=== PATIENT | male | born 1945 | race Caucasian/White ===

== ENCOUNTER 2016-07-29 12:58 | Emergency (ER) | payer BC, OTHER ==
[~2016-07-29] VITALS: Ht 182.9 cm; Wt 63.7 kg
[~2016-07-29 12:58] MED LIST: NCDT21 TD; SRQ25 PO; SRQSR50 PO; TYL325X PO; VTMB12 PO
[2016-07-29 13:24] VITALS: TEMP 36.3; Ht 182.9 cm; Wt 63.7 kg
[2016-07-29] MEDS ORDERED: LISI20TA55 PO (14:54)
--- NOTE | 2016-07-29 14:57 | EMERGENCY ROOM VISIT NOTE ---
History Report prepared by Urban: Gregory Vásquez Under the Supervision of: Dr. Grover Abrams M.D. First contact with patient: 14:42 Chief Complaint: BLEEDING Stated Complaint: BLEEDING History of Present Illness The patient is a 71 year old male who presents to the Emergency Room with complaints of sudden rectal bleeding beginning several hours prior to arrival. As per sister, she has to clean the seat of the toilet and the floor after the patient uses the bathroom. She states the patient has been experiencing blood in his underwear, as well. The sister denies the patient having a history of a GI bleed or being on blood thinners, but he does has a history of a previous traumatic brain injury. The patient denies hematuria, abdominal pain, weakness, and lightheadedness. Source of History: patient, family (sister) Onset: several hours prior to arrival Position: other (rectum) Quality: other (bleeding) Timing: other (sudden) Associated Symptoms: + hematochezia, No abdominal pain, No urinary symptoms , No weakness Review of Systems All systems have been listed, reviewed, and are negative other than those previously mentioned. Please see Additional Medical History Sheet. Past Medical & Surgical Medical Problems: (1) Asthma (2) Encephalopathy acute (3) Hypertension (4) Status post fall (5) TBI (traumatic brain injury) Family History Cancer Gallbladder disease Social History Smoking Status: Former Smoker Alcohol Use: none Drug Use: none Marital Status: single Housing Status: lives with family Occupation Status: disabled Current/Historical Medications Scheduled Cyanocobalamin (Vitamin B-12), 1,000 MCG PO DAILY Lisinopril/Hctz (Prinzide 20-25MG), 1 TAB PO DAILY Quetiapine Fumarate (Seroquel Xr), 50 MG PO DAILY@1999 Scheduled PRN Acetaminophen (Tylenol), 650 MG PO Q4H PRN for Pain or Fever Quetiapine Fumarate (Quetiapine Fumarate), 25 MG PO Q4H PRN for agitation Allergies Coded Allergies: No Known Allergies (Verified , 03/27/16) Physical Exam Vital Signs Date Time Temp Pulse Resp B/P Pulse Ox O2 Delivery O2 Flow Rate FiO2 07/29/16 15:36 61 16 112/61 98 Room Air 58 126/60 59 117/65 07/29/16 13:24 36.3 86 20 110/61 98 Room Air Physical Exam GENERAL: Patient awake, alert, oriented x 3. Patient follows commands. Patient does not appear toxic. Patient is adequately hydrated and well- nourished. SKIN: No erythema, pallor, cyanosis or rash HEENT: Normal head, pupils equal, reactive to light and accommodation. LUNGS: Clear to auscultation. No wheezes, no rales, no rhonchi. HEART: No murmurs. No gallops. No rubs ABDOMEN: No masses, no rebound, no hepatomegaly or splenomegaly. GENITALIA: Normal external genitalia. No signs of bleeding. RECTAL: No external hemorrhoids. Prostate enlarged and firm. Minimal stool which is guaiac positive. EXTREMITIES: No signs of trauma. No pedal or pretibial edema. No calf or thigh tenderness. NEUROLOGIC: Cranial nerves II-XII within normal limits. No gross motor sensory function deficits. Medical Decision & Procedures Laboratory Results 07/29/16 15:00 Red Blood Count 4.19, Mean Corpuscular Volume 94.5, Mean Corpuscular Hemoglobin 31.0, Mean Corpuscular Hemoglobin Concent 32.8, Mean Platelet Volume 10.5, Neutrophils (%) (Auto) 57.3, Lymphocytes (%) (Auto) 19.8, Monocytes (%) (Auto) 15.0, Eosinophils (%) (Auto) 6.4, Basophils (%) (Auto) 1.3, Neutrophils # (Auto ) 3.60, Lymphocytes # (Auto) 1.24, Monocytes # (Auto) 0.94, Eosinophils # (Auto ) 0.40, Basophils # (Auto) 0.08 07/29/16 15:00 Test 07/29/16 15:00 White Blood Count 6.27 K/uL (4.8-10.8) Red Blood Count 4.19 M/uL (4.7-6.1) Hemoglobin 13.0 g/dL (14.0-18.0) Hematocrit 39.6 % (42-52) Mean Corpuscular Volume 94.5 fL (80-100) Mean Corpuscular Hemoglobin 31.0 pg (25-34) Mean Corpuscular Hemoglobin Concent 32.8 g/dl (32-36) Platelet Count 217 K/uL (130-400) Mean Platelet Volume 10.5 fL (7.4-10.4) Neutrophils (%) (Auto) 57.3 % Lymphocytes (%) (Auto) 19.8 % Monocytes (%) (Auto) 15.0 % Eosinophils (%) (Auto) 6.4 % Basophils (%) (Auto) 1.3 % Neutrophils # (Auto) 3.60 K/uL (1.4-6.5) Lymphocytes # (Auto) 1.24 K/uL (1.2-3.4) Monocytes # (Auto) 0.94 K/uL (0.11-0.59) Eosinophils # (Auto) 0.40 K/uL (0-0.5) Basophils # (Auto) 0.08 K/uL (0-0.2) RDW Standard Deviation 51.3 fL (36.4-46.3) RDW Coefficient of Variation 15.0 % (11.5-14.5) Immature Granulocyte % (Auto) 0.2 % Immature Granulocyte # (Auto) 0.01 K/uL (0.00-0.02) Prothrombin Time 10.5 SECONDS (9.0-12.0) Prothromb Time International Ratio 1.0 (0.9-1.1) Activated Partial Thromboplast Time 25.9 SECONDS (21.0-31.0) Partial Thromboplastin Ratio 1.0 Anion Gap 10.0 mmol/L (3-11) Est Creatinine Clear Calc Drug Dose 38.7 ml/min Estimated GFR () 49.9 Estimated GFR (Non- 43.0 BUN/Creatinine Ratio 14.6 (10-20) Calcium Level 8.7 mg/dl (8.5-10.1) Total Bilirubin 0.2 mg/dl (0.2-1) Aspartate Amino Transf (AST/SGOT) 11 U/L (15-37) Alanine Aminotransferase (ALT/SGPT) 19 U/L (12-78) Alkaline Phosphatase 73 U/L (45-117) Total Protein 6.3 gm/dl (6.4-8.2) Albumin 3.2 gm/dl (3.4-5.0) Globulin 3.1 gm/dl (2.5-4.0) Albumin/Globulin Ratio 1.0 (0.9-2) Laboratory results as stated above per my review. ED Course 1441: Past medical records reviewed. The patient was evaluated in room A10. A complete history and physical examination was performed. 1540: Upon reevaluation, the patient's results were discussed. I discussed today 's findings with the patient and his sister. The patient and his sister verbalized agreement of the treatment plan. The patient was discharged home. Medical Decision Nurses notes reviewed. Medical history sheet reviewed. Differential diagnosis includes but is not limited to: hemorrhoids, fissure, GI bleed, anemia. The patient has no hemorrhoids or visible fissures but does have guaiac positive stools. Hemoglobin hematocrit are not low. The patient will require sigmoidoscopy or colonoscopy. He is currently safe to return home. He is to call his family physician tomorrow to set up further GI workup. Impression Primary Impression: GI bleed Scribe Attestation The scribe's documentation has been prepared under my direction and personally reviewed by me in its entirety. I confirm that the note above accurately reflects all work, treatment, procedures, and medical decision making performed by me. Departure Information Dispostion Home / Self-Care Referrals No Doctor, Assigned (PCP) Forms HOME CARE DOCUMENTATION FORM, IMPORTANT VISIT INFORMATION Patient Instructions GI Bleeding - [facility], My [facility] Additional Instructions Continue all of your current medications as prescribed. Call Dr. Braswell's office tomorrow for a follow-up appointment.
[2016-07-29 15:11] LABS: BASO % 1.3 %; BASO ABS # 0.08 K/uL (0-0.2); COMPLETE YES; EOS % 6.4 %; HEMATOCRIT 39.6 % (42-52); IG% 0.2 %; LYMPH % 19.8 %; LYMPH ABS # 1.24 K/uL (1.2-3.4); MEAN CELL VOLUME 94.5 fL (80-100); MEAN CORPUSCULAR HGB CONC 32.8 g/dl (32-36); MEAN PLATELET VOLUME 10.5 fL (7.4-10.4); NEUT % 57.3 %; PLATELET COUNT 217 K/uL (130-400); RED BLOOD COUNT 4.19 M/uL (4.7-6.1); WHITE BLOOD COUNT 6.27 K/uL (4.8-10.8)
[2016-07-29 15:26] LABS: PROTHROMBIN TIME (PATIENT) 10.5 SECONDS (9.0-12.0)
[2016-07-29 15:29] LABS: BUN/CREATININE RATIO 14.6 (10-20); CALCIUM 8.7 mg/dl (8.5-10.1); CREATININE 1.6 mg/dl (0.60-1.40); POTASSIUM 3.7 mmol/L (3.5-5.1)
[2016-07-29 16:14] VITALS: BP 112/53; PULSE 59; O2SAT 100
[2016-08-10] MEDS ORDERED: QUET1TAB32 PO (13:56)
[2016-08-10] MEDS ORDERED: CYAN50TA2 PO (13:56)
== END 2016-07-29 16:15 | disposition home or self-care (01) ==
LOC: C.EDB 13:00 → C.EDA 16:15
DX: K92.2 Gastrointestinal hemorrhage, unspecified (principal); I10 Essential (primary) hypertension; Z87.820 Personal history of traumatic brain injury

== ENCOUNTER → 2016-08-09 | Outpatient (CLI) | payer BC ==
[~2016-08-09] MED LIST changes: +CYAN500T PO; +CYAN50TA2 PO; +LISI20TA55 PO; +MESA1.2T PO; -NCDT21 TD; +QUET1TAB30 PO; +QUET1TAB32 PO
[2016-08-09 17:33] LABS: HEMATOCRIT 41.2 % (42-52); MEAN CELL VOLUME 94.5 fL (80-100); MEAN CORPUSCULAR HGB CONC 32.8 g/dl (32-36); MEAN PLATELET VOLUME 11.1 fL (7.4-10.4); PLATELET COUNT 260 K/uL (130-400); RED BLOOD COUNT 4.36 M/uL (4.7-6.1); WHITE BLOOD COUNT 10.15 K/uL (4.8-10.8)
== END | disposition home or self-care (01) ==
LOC: C.LABBFT 10:39
PROVIDERS: ATTEND Internal Medicine
DX: F50.89 Other specified eating disorder (principal); K92.2 Gastrointestinal hemorrhage, unspecified

== ENCOUNTER → 2016-08-14 | Day surgery (SDC) | payer BC ==
[2016-08-10 13:56] VITALS: Ht 180.3 cm; Wt 63.6 kg
[~2016-08-14] VITALS: Ht 180.3 cm; Wt 63.6 kg
[~2016-08-14] MED LIST changes: +LIDOCAINE HCL 2% 2 ML VIAL (20MG/ML) ONE; +PROPOFOL IV EMULSION 10 MG/ML 20 ML VIAL IV ONE; +SODIUM CHLORIDE 0.9% 500ML 500 ML IV ONE; -SRQ25 PO; -SRQSR50 PO; -TYL325X PO; -VTMB12 PO
--- NOTE | 2016-08-14 12:55 | Endo History and Physical ---
History & Physical Date of Service: Aug 14, 2016. Chief Complaint: RECTAL BLEEDING Referring Physician: DR JONES History of Present Illness Weight loss, rectal bleeding Past Surgical History Hx Cardiac Surgery: No Hx Internal Defibrillator: No Hx Pacemaker: No Hx Abdominal Surgery: No Hx of Implantable Prosthesis: No Hx Post-Op Nausea and Vomiting: No Hx Cancer Surgery: No Hx Thoracic Surgery: No Hx Orthopedic: No Hx Urinary Tract Surgery: No Family History IBD Social History Smoking Status: Former Smoker Hx Substance Use: No Hx Alcohol Use: Yes (QUIT 7-8 YEARS AGO) Allergies Coded Allergies: No Known Allergies (Verified , 08/14/16) Current Medications Reported Home Medications Medications Dose Route/Sig Max Daily Dose Days Date Category Seroquel (Quetiapine Fumarate) 50 Mg Tab 50 Mg PO HS PRN 08/10/16 Reported Vitamin B-12 (Cyanocobalamin) 50 Mcg Tab 1 Tab PO BID 08/10/16 Reported Prinzide 20-25MG (HCTZ/Lisinopril) Tab 1 Tab PO QAM 07/29/16 Reported Vital Signs Weight (Kilograms): 63.64 Height (Feet): 5 Height (Inches): 11 Date Time Temp Pulse Resp B/P Pulse Ox O2 Delivery O2 Flow Rate FiO2 08/14/16 12:28 36.7 70 16 120/59 99 Room Air Physical Exam General Appearance: WD/WN, no apparent distress, + thin Respiratory/Chest: Auscultation: breath sounds normal, no wheezing, no rales/crackles Cardiovascular: Heart Auscultation: RRR, no murmurs Abdomen: Inspection & Palpation: soft, no tenderness, guarding & rebound Assessment and Plan Cleared for EGD and colonoscopy.
--- NOTE | 2016-08-14 13:31 | Discharge Instructions ---
Endoscopy Patient Instructions Date / Procedure(s) Performed Aug 14, 2016. Colonoscopy, EGD Allergy Information Coded Allergies: No Known Allergies (Verified , 08/14/16) Discharge Date / Findings Aug 14, 2016. Colitis, incomplete colonoscopy. Hiatal hernia/\. Medication Instructions Restart Stopped Medication(s): Restart all medications today. Start Lialda one tablet twice daily. Provider Instructions Activity Restrictions - No exercising or heavy lifting for 24 hours. - Do not drink alcohol the day of the procedure. - Do not drive a car or operate machinery until the day after the procedure. - Do not make any important decisions or sign important papers in 24 hours after the procedure. Following Day: - Return to full activity which may include returning to work/school. Diet Start your diet with liquids and light foods (jello, soup, juice, toast). Then eat your usual diet if not nauseated. Treatment For Common After Affects For mild abdominal pain, bloating, or excessive gas: - Rest - Eat lightly - Lie on right side Follow-Up Information Follow-up with DR JONES as scheduled Anesthesia Information What You Should Know You have had a procedure that required some medicine to reduce anxiety and discomfort. This treatment is called moderate sedation. After receiving the treatment, you may be sleepy, but you will be able to breathe on your own. The effects of the treatment may last for several hours. Follow these instructions along with Activity/Diet recommendations noted above: * Do NOT do anything where dizziness or clumsiness would be dangerous. * Rest quietly at home today, then you can be up and about tomorrow. * Have a responsible person stay with you the rest of today. * You may have had an I.V. today. If so, you may take the dressing off later today. Recommendations Call your doctor if: * Trouble breathing * Continuous vomiting for more than 24 hours * Temperature above 101 degrees * Severe abdominal pain or bloating * Pain not relieved by pain medicine ordered * There is increased drainage or redness from any incision * A large amount of rectal bleeding greater than 2-3 tablespoons. (If you had a polyp/s removed or have hemorrhoids, a small amount of blood - from the rectum is to be expected.) * You have any unanswered questions or concerns. IN THE EVENT OF A SERIOUS EMERGENCY, GO TO THE NEAREST EMERGENCY ROOM Your discharge instructions were prepared by provider Zackary Chun. Patient Instructions Signature Page Yakov Howard Patient (or Guardian) Signature/Date: I have read and understand the instructions given to me by my caregivers. Caregiver/RN/Doctor Signature/Date: The above-named patient and/or guardian has received patient instructions on this date. + Original Patient Signature Page (only) stays with chart. Please make copy for patient.
--- NOTE | 2016-08-14 13:43 | Anesthesiology Progress Note ---
Anesthesia Post Op Note Date & Time Aug 14, 2016 at 13:43 Vital Signs Pain Intensity: 0 Vital Signs Past 12 Hours Date Time Temp Pulse Resp B/P Pulse Ox O2 Delivery O2 Flow Rate FiO2 08/14/16 12:28 36.7 70 16 120/59 99 Room Air Notes Mental Status: alert / awake / arousable, participated in evaluation Pt Amnestic to Procedure: Yes Nausea / Vomiting: adequately controlled Pain: adequately controlled Airway Patency, RR, SpO2: stable & adequate BP & HR: stable & adequate Hydration State: stable & adequate Anesthetic Complications: no major complications apparent
[2016-08-14 14:07] VITALS: BP 112/57; PULSE 53; O2SAT 98
--- NOTE | 2016-08-15 00:45 | GI REPORT ---
Procedure Date: 08/14/2016 12:50 PM Procedure: Colonoscopy Indications: Rectal bleeding Medicines: Monitored Anesthesia Care Complications: No immediate complications. Estimated blood loss: None. Estimated Blood Loss: Estimated blood loss: none. Procedure: Pre-Anesthesia Assessment: - Prior to the procedure, a History and Physical was performed, and patient medications, allergies and sensitivities were reviewed. The patient's tolerance of previous anesthesia was reviewed. - ASA Grade Assessment: III - A patient with severe systemic disease. After I obtained informed consent, the scope was passed under direct vision. Throughout the procedure, the patient's blood pressure, pulse, and oxygen saturations were monitored continuously. The Scope was introduced through the anus with the intention of advancing to the cecum. The scope was advanced to the sigmoid colon before the procedure was aborted. Medications were given. The colonoscopy was performed with difficulty due to inadequate bowel prep. The patient tolerated the procedure well. The quality of the bowel preparation was inadequate. The bowel preparation used was split dose MIralax. Findings: Diffuse moderate inflammation characterized by congestion (edema) and granularity was found from rectum to sigmoid colon. Biopsies were taken with a cold forceps for histology. Fluid aspiration was performed through the scope suction channel. The amount of fluid collected was 10 mL. Sample(s) were sent for bacterial cultures, Clostridium difficile and ova and parasites. Impression: - Preparation of the colon was inadequate. - Diffuse moderate inflammation was found from rectum to sigmoid colon secondary to colitis. Biopsied. Fluid aspiration performed. - The procedure was aborted due to inadequate bowel prep. Recommendation: - Await pathology results. - Use Lialda 1.2 gm at 1 tabs PO twice daily. - Discharge patient to home (with escort). Zackary Chun M.D. Zackary Chun MD 08/14/2016 1:29:48 PM This report has been signed electronically. Note Initiated On: 08/14/2016 12:50 PM I attest to the content of the Intraoperative Record and orders documented therein, exceptions below
--- NOTE | 2016-08-15 00:45 | GI REPORT ---
Procedure Date: 08/14/2016 12:50 PM Procedure: Upper GI endoscopy Indications: Weight loss Medicines: Monitored Anesthesia Care Complications: No immediate complications. Estimated blood loss: None. Estimated Blood Loss: Estimated blood loss: none. Procedure: Pre-Anesthesia Assessment: - Prior to the procedure, a History and Physical was performed, and patient medications, allergies and sensitivities were reviewed. The patient's tolerance of previous anesthesia was reviewed. - ASA Grade Assessment: III - A patient with severe systemic disease. After obtaining informed consent, the endoscope was passed under direct vision. Throughout the procedure, the patient's blood pressure, pulse, and oxygen saturations were monitored continuously. The scope was introduced through the mouth, and advanced to the third part of the duodenum. Small bowel enteroscopy was deemed necessary. The upper GI endoscopy was accomplished with ease. The patient tolerated the procedure well. Findings: The upper third of the esophagus, middle third of the esophagus and lower third of the esophagus were normal. The Z-line was regular and was found 40 cm from the incisors. A small hiatus hernia was present. The entire examined stomach was normal. Biopsies were taken with a cold forceps for Helicobacter pylori testing. The examined duodenum was normal. Biopsies for histology were taken with a cold forceps for evaluation of celiac disease. Verification of patient identification for the specimens was done by the physician and nurse using the patient's name, date and medical record number. Impression: - Normal upper third of esophagus, middle third of esophagus and lower third of esophagus. - Z-line regular, 40 cm from the incisors. - Small hiatus hernia. - Normal stomach. Biopsied. - Normal examined duodenum. Biopsied. Recommendation: - Perform a colonoscopy today. Zackary Chun M.D. Zackary Chun MD 08/14/2016 1:07:49 PM This report has been signed electronically. Note Initiated On: 08/14/2016 12:50 PM I attest to the content of the Intraoperative Record and orders documented therein, exceptions below
[2016-08-17 15:21] LABS: CRYPTOSPORIDIUM AG TC 37213 NOT DETECTED (NOT DETECTED); O&P GIARDIA AG NOT DETECTED (NOT DETECTED)
== END | disposition home or self-care (01) ==
LOC: C.GI 11:51
PROVIDERS: ATTEND Internal Medicine Gastroenterology
DX: K52.9 Noninfective gastroenteritis and colitis, unspecified (principal); R63.4 Abnormal weight loss; K44.9 Diaphragmatic hernia without obstruction or gangrene; K62.5 Hemorrhage of anus and rectum

== ENCOUNTER 2016-12-07 21:37 | Inpatient (IN) | payer BC, OTHER ==
[~2016-12-07] VITALS: Ht 182.9 cm; Wt 66.6 kg
[~2016-12-07 21:37] MED LIST changes: -CYAN500T PO; -LIDOCAINE HCL 2% 2 ML VIAL (20MG/ML) ONE; -MESA1.2T PO; -PROPOFOL IV EMULSION 10 MG/ML 20 ML VIAL IV ONE; -QUET1TAB30 PO; -SODIUM CHLORIDE 0.9% 500ML 500 ML IV ONE
[2016-12-07] MEDS ORDERED: SODIUM CHLORIDE 0.9% 500ML 500 ML IV STA (22:18)
--- NOTE | 2016-12-07 22:22 | EMERGENCY ROOM VISIT NOTE ---
History Report prepared by Urban: Winsome Vital Under the Supervision of: Dr. Maxim Hall M.D. First contact with patient: 22:13 Chief Complaint: FALL Stated Complaint: FALL/ EVAL History of Present Illness The patient is a 71 year old male who presents to the Emergency Room with complaints of an episode of a fall beginning just [employer]. The patient's family reports that the patient fell at home today while they were not in the same room with him. They state that they found him on the floor and his glasses were not on his face. The patient does not remember if he hit his head during the fall and he states that he did need help to get up afterwards. The family notes that he has been more tired lately. He denies any head pain and abdominal pain. Source of History: patient, family Onset: just [employer] Position: other (global) Quality: other (fall) Timing: other (episode) Associated Symptoms: No headache, No abdominal pain Note: Complains of tiredness. Review of Systems See HPI for pertinent positives & negatives. A total of 10 systems reviewed and were otherwise negative. Past Medical & Surgical Medical Problems: (1) Asthma (2) Encephalopathy acute (3) Hypertension (4) Lower extremity weakness (5) Status post fall (6) TBI (traumatic brain injury) Family History Cancer Gallbladder disease Social History Smoking Status: Current Some Day Smoker Alcohol Use: none Drug Use: none Marital Status: single Housing Status: lives with family Occupation Status: disabled Current/Historical Medications Scheduled Cyanocobalamin (Vitamin B-12), 1,000 MCG PO DAILY Lisinopril/Hctz (Prinzide 20-25MG), 1 TAB PO QAM Mesalamine (Lialda), 1.2 GM PO BID Quetiapine Fumarate (Seroquel), 50 MG PO HS Scheduled PRN Quetiapine Fumarate (Seroquel), 25 MG PO Q4 PRN for Agitation Allergies Coded Allergies: No Known Allergies (Verified , 12/07/16) Physical Exam Vital Signs Date Time Temp Pulse Resp B/P (MAP) Pulse Ox O2 Delivery O2 Flow Rate FiO2 12/08/16 01:07 77 12/08/16 00:47 76 18 131/72 96 Room Air 12/07/16 22:41 73 134/66 72 138/69 83 146/76 6/30/17 22:36 98 Room Air 12/07/16 22:36 98 Room Air 12/07/16 22:12 70 12/07/16 21:45 36.7 72 18 160/66 98 Room Air Physical Exam GENERAL: Patient is a healthy-appearing well-nourished male HEAD: Normocephalic atraumatic EYES: Ocular movements intact pupils equal and react to light OROPHARYNX mucous membranes are moist no exudates present no erythema or edema present NECK: Supple no nuchal rigidity CHEST: Good equal expansion LUNGS: Clear and equal to auscultation CARDIAC: Normal S1 and S2 ABDOMEN: Soft nontender no guarding BACK: No CVA tenderness EXTREMITIES: No pain upon palpation normal muscle strength in all groups no clubbing cyanosis or edema NEURO: Patient is following commands and answering questions appropriately. Alert and oriented x3 Cranial Nerves 2-12 grossly intact Medical Decision & Procedures ER Provider Diagnostic Interpretation: Radiology results as stated below per my review and radiologist interpretation: CT SCAN OF THE BRAIN WITHOUT IV CONTRAST FINDINGS: Brain parenchyma: There are age-related involutional changes noting moderate subcortical and periventricular microangiopathic change. Bifrontal and right temporal encephalomalacia are similar to previous and consistent with remote infarcts. There is no hemorrhage, mass effect, or evidence of acute territorial ischemia by CT criteria. Stanford-white matter is preserved. No extra-axial fluid collection is seen. Ventricles, sulci, cisterns: Prominent secondary to involutional change. Intracranial vasculature: There is atherosclerotic calcification of the cavernous carotid arteries. Prominence of the left MCA bifurcation is similar to previous. See report of CT angiogram of the brain dated 03/27/2016. Calvarium: Unremarkable. Sinuses and mastoids: The visualized paranasal sinuses are clear. The mastoid air cells are well pneumatized. Orbits: The bony orbits are grossly intact. IMPRESSION: Senescent changes and remote infarcts as above. There is no hemorrhage, mass effect, or evidence of acute territorial ischemia by CT criteria. Electronically signed by: Jordy Hernandez M.D. 12/07/2016 11:13 PM Dictated Date/Time: 12/07/2016 11:10 PM SINGLE VIEW CHEST FINDINGS: An AP, portable, upright chest radiograph is compared to study dated 03/27/2016. The examination is degraded by portable technique and patient rotation. The heart is top normal for projection. There is atherosclerotic calcification of the thoracic aorta. Chronic interstitial thickening is unchanged. No airspace consolidation, large pleural effusion, or pneumothorax is seen. There is minimal left basilar atelectasis. The skeletal structures are osteopenic. There are healed right-sided rib fractures. Chronic posttraumatic deformity is seen in the right clavicle. Degenerative change is noted in the thoracic spine. IMPRESSION: No acute cardiopulmonary abnormality. Electronically signed by: Jordy Hernandez M.D. 12/07/2016 10:42 PM Dictated Date/Time: 12/07/2016 10:41 PM Laboratory Results 12/07/16 22:40 Red Blood Count 4.12, Mean Corpuscular Volume 91.3, Mean Corpuscular Hemoglobin 29.9, Mean Corpuscular Hemoglobin Concent 32.7, Mean Platelet Volume 9.4, Neutrophils (%) (Auto) 70.3, Lymphocytes (%) (Auto) 9.8, Monocytes (%) (Auto) 10.7, Eosinophils (%) (Auto) 8.5, Basophils (%) (Auto) 0.5, Neutrophils # (Auto ) 9.03, Lymphocytes # (Auto) 1.26, Monocytes # (Auto) 1.37, Eosinophils # (Auto ) 1.09, Basophils # (Auto) 0.07 12/07/16 22:40 Test 12/07/16 22:38 12/07/16 22:40 12/07/16 23:52 Bedside Glucose 100 mg/dl (70-99) White Blood Count 12.85 K/uL (4.8-10.8) Red Blood Count 4.12 M/uL (4.7-6.1) Hemoglobin 12.3 g/dL (14.0-18.0) Hematocrit 37.6 % (42-52) Mean Corpuscular Volume 91.3 fL (80-100) Mean Corpuscular Hemoglobin 29.9 pg (25-34) Mean Corpuscular Hemoglobin Concent 32.7 g/dl (32-36) Platelet Count 350 K/uL (130-400) Mean Platelet Volume 9.4 fL (7.4-10.4) Neutrophils (%) (Auto) 70.3 % Lymphocytes (%) (Auto) 9.8 % Monocytes (%) (Auto) 10.7 % Eosinophils (%) (Auto) 8.5 % Basophils (%) (Auto) 0.5 % Neutrophils # (Auto) 9.03 K/uL (1.4-6.5) Lymphocytes # (Auto) 1.26 K/uL (1.2-3.4) Monocytes # (Auto) 1.37 K/uL (0.11-0.59) Eosinophils # (Auto) 1.09 K/uL (0-0.5) Basophils # (Auto) 0.07 K/uL (0-0.2) RDW Standard Deviation 46.6 fL (36.4-46.3) RDW Coefficient of Variation 14.0 % (11.5-14.5) Immature Granulocyte % (Auto) 0.2 % Immature Granulocyte # (Auto) 0.03 K/uL (0.00-0.02) Anion Gap 5.0 mmol/L (3-11) Est Creatinine Clear Calc Drug Dose 31.6 ml/min Estimated GFR () 53.9 Estimated GFR (Non- 46.5 BUN/Creatinine Ratio 21.2 (10-20) Calcium Level 9.6 mg/dl (8.5-10.1) Total Bilirubin 0.1 mg/dl (0.2-1) Direct Bilirubin < 0.1 mg/dl (0-0.2) Aspartate Amino Transf (AST/SGOT) 13 U/L (15-37) Alanine Aminotransferase (ALT/SGPT) 19 U/L (12-78) Alkaline Phosphatase 96 U/L (45-117) Total Creatine Kinase 152 U/L (39-308) Creatine Kinase MB 1.2 ng/ml (0.5-3.6) Creatine Kinase MB Ratio 0.8 (0-3.0) Troponin I < 0.015 ng/ml (0-0.045) Total Protein 6.9 gm/dl (6.4-8.2) Albumin 2.9 gm/dl (3.4-5.0) Thyroid Stimulating Hormone (TSH) 1.860 uIu/ml (0.300-4.500) Urine Color YELLOW Urine Appearance CLEAR (CLEAR) Urine pH 5.0 (4.5-7.5) Urine Specific [place] 1.022 (1.000-1.030) Urine Protein NEG (NEG) Urine Glucose (UA) NEG (NEG) Urine Ketones NEG (NEG) Urine Occult Blood NEG (NEG) Urine Nitrite NEG (NEG) Urine Bilirubin NEG (NEG) Urine Urobilinogen NEG (NEG) Urine Leukocyte Esterase NEG (NEG) Labs reviewed by ED physician. Medications Administered Medications (Trade) Dose Ordered Sig/Jose Miguel Route Start Time Stop Time Status Last Admin Dose Admin Sodium Chloride 500 ml @ 999 mls/hr Q31M STAT IV 12/07/16 22:18 12/07/16 22:48 DC 12/07/16 22:39 999 MLS/HR ECG Indication: other (fall) Rate (beats per minute): 71 Rhythm: normal sinus Findings: no acute ischemic change, no ectopy, other (old septal infarct) ED Course 2213: Past medical records reviewed. The patient was evaluated in room B10. A complete history and physical examination was performed. 2218: Sodium Chloride 500 ml @ 999 mls/hr IV. 0002: The patient was ambulated by the nursing staff and is concerning for fall risk. The family would like the patient to stay in the hospital. 0027: I discussed the patient's case with Dr. Ramesh, he has agreed to evaluate the patient for further management and care. 0037: Upon reexamination the patient is doing well. I discussed results and treatment plan with the patient. He verbalizes agreement and understanding. I [place]. Ramesh from [place] [facility] [place] The patient will be evaluated for further management. Medical Decision Differential diagnosis: Etiologies such as fracture, dislocation, intra-abdominal, pneumothorax, intrathoracic , intracranial, neurologic, as well as other traumatic pathologies were entertained. Medication Reconciliation: I attest that I have personally reviewed the patient' s current medication list Blood Pressure Screening: Patient was found to have an elevated blood pressure and was referred to their primary care doctor for recheck and further treatment This is a 71-year-old male who presents emergency department after fall at home. The patient's family is concerned that they can no longer take care of him. An IV was established, patient given normal saline bolus. Patient does have a slight elevation in his white blood count cell count however is chest x- ray as well as CAT scan of his head is normal. the patient was a related by nursing staff who were really concerned that the patient has a huge fall risk. I recommended rehabilitation to both the patient as well as the family however due to insurance issues the patient will need to be admitted. Consults Time Called: 14 Consulting Physician: Dr. Ramesh Returned Call: 26 I discussed the patient's case with Dr. Ramesh, he has agreed to evaluate the patient for further management and care. Impression Primary Impression: Fall Scribe Attestation The scribe's documentation has been prepared under my direction and personally reviewed by me in its entirety. I confirm that the note above accurately reflects all work, treatment, procedures, and medical decision making performed by me. Departure Information Dispostion Being Evaluated By Hospitalist Referrals Sher Braswell M.D. (PCP) Patient Instructions My [facility] Problem Qualifiers Primary Impression: Fall Encounter type: initial encounter Qualified Codes: W19.XXXA - Unspecified fall, initial encounter
--- NOTE | 2016-12-07 22:43 | DIAGNOSTIC IMAGING REPORT ---
SINGLE VIEW CHEST CLINICAL HISTORY: Change in mental status. FINDINGS: An AP, portable, upright chest radiograph is compared to study dated 03/27/2016. The examination is degraded by portable technique and patient rotation. The heart is top normal for projection. There is atherosclerotic calcification of the thoracic aorta. Chronic interstitial thickening is unchanged. No airspace consolidation, large pleural effusion, or pneumothorax is seen. There is minimal left basilar atelectasis. The skeletal structures are osteopenic. There are healed right-sided rib fractures. Chronic posttraumatic deformity is seen in the right clavicle. Degenerative change is noted in the thoracic spine. IMPRESSION: No acute cardiopulmonary abnormality. Electronically signed by: Jordy Hernandez M.D. 12/07/2016 10:42 PM Dictated Date/Time: 12/07/2016 10:41 PM
[2016-12-07 22:49] LABS: HEMATOCRIT 37.6 % (42-52); MEAN CELL VOLUME 91.3 fL (80-100); MEAN CORPUSCULAR HEMOGLOBIN 29.9 pg (25-34); MEAN CORPUSCULAR HGB CONC 32.7 g/dl (32-36); MEAN PLATELET VOLUME 9.4 fL (7.4-10.4); PLATELET COUNT 350 K/uL (130-400); RED BLOOD COUNT 4.12 M/uL (4.7-6.1); WHITE BLOOD COUNT 12.85 K/uL (4.8-10.8)
[2016-12-07 23:09] LABS: ALT/SGPT 19 U/L (12-78); BLOOD UREA NITROGEN 32 mg/dl (7-18); BUN/CREATININE RATIO 21.2 (10-20); CALCIUM 9.6 mg/dl (8.5-10.1); CARBON DIOXIDE 29 mmol/L (21-32); CHLORIDE 107 mmol/L (98-107); GLUCOSE 107 mg/dl (70-99); POTASSIUM 4.3 mmol/L (3.5-5.1); SODIUM 141 mmol/L (136-145)
[2016-12-07] MEDS ORDERED: CYAN500T PO (23:12)
[2016-12-07] MEDS ORDERED: MESA1.2T PO (23:13)
[2016-12-07] MEDS ORDERED: QUET1TAB30 PO (23:13)
--- NOTE | 2016-12-07 23:14 | DIAGNOSTIC IMAGING REPORT ---
CT SCAN OF THE BRAIN WITHOUT IV CONTRAST CLINICAL HISTORY: Change in mental status. COMPARISON STUDY: CT an CT angiogram of the brain dated 03/27/2016. TECHNIQUE: Unenhanced axial CT scan of the brain is performed from the vertex to the skull base. CT DOSE: 537.48 mGy.cm FINDINGS: Brain parenchyma: There are age-related involutional changes noting moderate subcortical and periventricular microangiopathic change. Bifrontal and right temporal encephalomalacia are similar to previous and consistent with remote infarcts. There is no hemorrhage, mass effect, or evidence of acute territorial ischemia by CT criteria. Stanford-white matter is preserved. No extra-axial fluid collection is seen. Ventricles, sulci, cisterns: Prominent secondary to involutional change. Intracranial vasculature: There is atherosclerotic calcification of the cavernous carotid arteries. Prominence of the left MCA bifurcation is similar to previous. See report of CT angiogram of the brain dated 03/27/2016. Calvarium: Unremarkable. Sinuses and mastoids: The visualized paranasal sinuses are clear. The mastoid air cells are well pneumatized. Orbits: The bony orbits are grossly intact. IMPRESSION: Senescent changes and remote infarcts as above. There is no hemorrhage, mass effect, or evidence of acute territorial ischemia by CT criteria. Electronically signed by: Jordy Hernandez M.D. 12/07/2016 11:13 PM Dictated Date/Time: 12/07/2016 11:10 PM
[2016-12-07 23:20] LABS: ALKALINE PHOSPHATASE 96 U/L (45-117); AST/SGOT 13 U/L (15-37); CKMB/CK RATIO 0.8 (0-3.0)
[2016-12-07 23:37] LABS: BASO % 0.5 %; BASO ABS # 0.07 K/uL (0-0.2); COMPLETE YES; EOS % 8.5 %; IG% 0.2 %; LYMPH % 9.8 %; LYMPH ABS # 1.26 K/uL (1.2-3.4); MONO % 10.7 %; NEUT % 70.3 %
[2016-12-08] VITALS (9 sets, daily range): BP systolic 116–179; BP diastolic 58–80; PULSE 64–104; TEMP 36.6–37.7; O2SAT 94–99; Ht 182.9 cm; Wt 66.6 kg
[2016-12-08 00:05] LABS: URINE APPEARANCE CLEAR (CLEAR); URINE BILIRUBIN NEG (NEG); URINE COLOR YELLOW; URINE NITRITE NEG (NEG); URINE SPECIFIC GRAVITY 1.022 (1.000-1.030); UROBILINOGEN NEG (NEG)
[2016-12-08 00:09] LABS: MANUAL MICROSCOPIC REQUIRED? NO; REVIEW REQ? NO
[2016-12-08] MEDS ORDERED: HydrALAZINE HCL 20 MG/ML VIAL IV. PRN (01:45)
[2016-12-08] MEDS ORDERED: ACETAMINOPHEN 325 MG TAB PO PRN (01:45)
[2016-12-08] MEDS ORDERED: QUETIAPINE FUMARATE 25 MG TAB PO PRN (01:45)
[2016-12-08] MEDS ORDERED: ONDANSETRON INJ 2 MG/ML 2 ML VIAL IV PRN (01:45)
--- NOTE | 2016-12-08 01:56 | DIAGNOSTIC IMAGING REPORT ---
CT SCAN OF THE LUMBAR SPINE WITHOUT IV CONTRAST CLINICAL HISTORY: Fall. Back pain. Leg pain. COMPARISON STUDY: No priors. TECHNIQUE: CT scan of the lumbar spine is performed from the lower thoracic spine to the sacrum. Images are reviewed in the axial, sagittal, and coronal planes. IV contrast was not administered for this examination. CT DOSE: 654.97 mGy.cm FINDINGS: The skeletal structures are osteopenic. No fracture or malalignment is seen. Vertebral body height and alignment are maintained throughout the lumbar spine. Anterior osteophytes are seen throughout. The transverse and spinous processes are intact. There is no spondylolysis. No lytic or blastic lesions are seen. Mild degenerative disc space narrowing is seen at L3-L4. A Schmorl's node is noted in the inferior endplate of L3. There is no evidence of large disc herniation. Minimal disc bulge is noted at L3-L4, L4-L5, and L5-S1. Central canal is grossly clear as visualized by CT. The visualized sacrum and bony pelvis appear intact. The paraspinous soft tissues are within normal limits. Moderate atherosclerotic calcification is noted in the abdominal aorta. IMPRESSION: 1. No acute bony abnormality is seen involving the lumbar spine. 2. Osteopenia and mild degenerative change as above. Electronically signed by: Jordy Hernandez M.D. 12/08/2016 1:55 AM Dictated Date/Time: 12/08/2016 1:49 AM
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
[2016-12-08] MEDS: NSS + 20MEQ KCL 1000ML 1,000 ML IV SCH ×2 (03:04→15:56)
[2016-12-08] MEDS: CYANOCOBALAMIN 500 MCG TAB (VIT B-12) PO SCH (08:05)
[2016-12-08 08:54] LABS: BUN/CREATININE RATIO 18.6 (10-20); CREATININE 1.2 mg/dl (0.60-1.40); POTASSIUM 3.9 mmol/L (3.5-5.1)
[2016-12-08] MEDS ORDERED: MESALAMINE 1.2 GM PO SCH (09:00)
[2016-12-08 10:16] LABS: CKMB/CK RATIO 0.6 (0-3.0)
[2016-12-08] MEDS ORDERED: GADAVIST IV PRN (10:45)
--- NOTE | 2016-12-08 11:04 | DIAGNOSTIC IMAGING REPORT ---
MRA OF THE INTRACRANIAL CIRCULATION WITHOUT CONTRAST CLINICAL HISTORY: Altered mental status. COMPARISON STUDY: CTA of the head March 27, 2016. TECHNIQUE: Utilizing a 1.5 Chantal magnet and 3-D [id number] technique, unenhanced MRA of the intracranial circulation was obtained. FINDINGS: Mild fusiform aneurysmal dilatation of the left MCA bifurcation is unchanged since exam of March 27, 2016. This suggests mild aneurysmal dilatation. No additional aneurysms are identified. There is no abrupt vessel cut off. Extensive right temporal lobe encephalomalacia is again noted with bifrontal encephalomalacia. Ventricular dilatation is unchanged. The MRA of the neck will be reported separately. The posterior circulation is intact. IMPRESSION: 1. 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 No saccular aneurysm identified. 2. No abrupt vessel cut off. Electronically signed by: Chester Rivera M.D. 12/08/2016 11:02 AM Dictated Date/Time: 12/08/2016 10:59 AM
--- NOTE | 2016-12-08 11:04 | DIAGNOSTIC IMAGING REPORT ---
MRI OF THE BRAIN WITHOUT AND WITH IV CONTRAST CLINICAL HISTORY: Altered mental status. Fall. COMPARISON STUDY: Head CT December 07, 2016. TECHNIQUE: Utilizing a 1.5 Chantal magnet and dedicated coil, multiplanar, multiecho imaging of the brain was performed pre and postcontrast administration. IV administration of Gadavist contrast was uneventful. FINDINGS: There are no areas of restricted diffusion. No acute intracranial hemorrhage, midline shift or mass effect is present. Note is made of small CSF signal intensity bilateral subdural fluid collections suggestive of subdural hygromas. These measure approximately 4 mm in thickness. The left subdural hygroma is slightly larger than right. Ventricular dilatation is unchanged. The basilar cisterns are patent. Extensive encephalomalacia within the right temporal lobe is unchanged. Bifrontal encephalomalacia is unchanged. There is no intracranial mass. Postcontrast images demonstrate thin uniform pachymeningeal enhancement. IMPRESSION: 1. No evidence of acute infarction. No intracranial hemorrhage. 2. Small CSF signal intensity bilateral subdural fluid collections suggestive of subdural hygromas without significant mass effect. These are new since head CT of March 27, 2016. 3. Mild uniform pachymeningeal dural enhancement which is nonspecific but may be related to the subdural hygromas. 4. Redemonstration of extensive right temporal and bifrontal encephalomalacia. Electronically signed by: Chester Rivera M.D. 12/08/2016 11:03 AM Dictated Date/Time: 12/08/2016 10:40 AM
--- NOTE | 2016-12-08 11:15 | DIAGNOSTIC IMAGING REPORT ---
MRA OF THE NECK WITH AND WITHOUT CONTRAST CLINICAL HISTORY: Altered mental status. COMPARISON STUDY: CTA of the neck March 27, 2016. TECHNIQUE: Unenhanced and contrast-enhanced MRA of the neck was performed. Injection of 7 mL of Gadavist IV was uneventful. NASCET criteria were utilized to estimate the degree of carotid stenosis. FINDINGS: There is no significant stenosis within the bilateral common carotid and internal carotid arteries. There is mild stenosis at the origin the right vertebral artery. There is no evidence for dissection within the major vasculature of the neck. Irregularity of the major vessels is due to mild atherosclerosis. IMPRESSION: 1. No significant stenosis within the bilateral common carotid and internal carotid arteries. 2. Mild to moderate stenosis at the origin of the right vertebral artery. Electronically signed by: Chester Rivera M.D. 12/08/2016 11:14 AM Dictated Date/Time: 12/08/2016 11:11 AM
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
[2016-12-08 18:01] LABS: CKMB/CK RATIO 0.8 (0-3.0)
[2016-12-08] MEDS: QUETIAPINE FUMARATE 25 MG TAB PO SCH (20:43)
[2016-12-09] VITALS (8 sets, daily range): BP systolic 110–161; BP diastolic 58–72; PULSE 57–70; TEMP 36.5–36.8; O2SAT 96–99
[2016-12-09] MEDS: NSS + 20MEQ KCL 1000ML 1,000 ML IV SCH ×2 (04:11→18:47)
[2016-12-09 06:16] LABS: BASO % 0.6 %; BASO ABS # 0.07 K/uL (0-0.2); COMPLETE YES; EOS % 17.6 %; HEMATOCRIT 34.2 % (42-52); IG% 0.3 %; LYMPH % 16.1 %; LYMPH ABS # 1.87 K/uL (1.2-3.4); MEAN CELL VOLUME 92.7 fL (80-100); MEAN CORPUSCULAR HEMOGLOBIN 28.7 pg (25-34); MONO % 10.3 %; NEUT % 55.1 %; PLATELET COUNT 307 K/uL (130-400); RED BLOOD COUNT 3.69 M/uL (4.7-6.1)
[2016-12-09 06:49] LABS: BUN/CREATININE RATIO 19.1 (10-20); CALCIUM 8.5 mg/dl (8.5-10.1); CREATININE 1.1 mg/dl (0.60-1.40); MAGNESIUM 2.3 mg/dl (1.8-2.4); POTASSIUM 3.9 mmol/L (3.5-5.1)
[2016-12-09] MEDS: CYANOCOBALAMIN 500 MCG TAB (VIT B-12) PO SCH (07:33)
--- NOTE | 2016-12-09 11:47 | Family Medicine Progress Note ---
Progress Note Date of Service Dec 09, 2016.
--- NOTE | 2016-12-09 11:48 | Family Medicine Progress Note ---
Progress Note Date of Service Dec 09, 2016. Subjective Pt evaluation today including: conversation w/ patient, physical exam, chart review, lab review, review of studies, review of inpatient medication list Pain: denies PO Intake: adequate Voiding: no voiding problems NO acute events, patient denies BURGOS, visual changes, N/V, Numbness, tingling Constitutional: + fatigue, No fever, No chills Respiratory: No cough, No wheezing Cardiovascular: No chest pain, No edema, No palpitations Abdomen: No pain, No nausea, No vomiting Male : No dysuria, No urinary frequency Neurologic: + weakness (LLE), No numbness/tingling Skin: No rash, No itch Medications Current Inpatient Medications Medications (Trade) Dose Ordered Sig/Jose Miguel Route Start Time Stop Time Status Last Admin Dose Admin Potassium Chloride/Sodium Chloride 1,000 ml @ 75 mls/hr [id number] IV 12/08/16 01:31 01/07/17 01:30 12/09/16 04:11 75 MLS/HR Acetaminophen (Tylenol Tab) 650 mg Q4H PRN PO 12/08/16 01:45 01/07/17 01:44 Cyanocobalamin (Vitamin B-12 Tab) 1,000 mcg DAILY PO 12/08/16 09:00 01/07/17 08:59 12/09/16 07:33 1,000 MCG Quetiapine Fumarate (seroQUEL TAB) 25 mg Q4 PRN PO 12/08/16 01:45 01/07/17 01:44 Quetiapine Fumarate (seroQUEL TAB) 50 mg HS PO 12/08/16 21:00 01/07/17 20:59 12/08/16 20:43 50 MG Ondansetron HCl (Zofran Inj) 4 mg Q6H PRN IV 12/08/16 01:45 01/07/17 01:44 Hydralazine HCl (HydrALAZINE INJ) 10 mg Q4H PRN IV. 12/08/16 01:45 01/07/17 01:44 Miscellaneous Information (Order Awaiting Action) 1 ea QS N/A 12/08/16 08:00 01/07/17 07:59 Gadobutrol (Gadavist) 7 mmol UD PRN IV 12/08/16 10:45 12/12/16 10:44 Objective Vital Signs Date Time Temp Pulse Resp B/P (MAP) Pulse Ox O2 Delivery O2 Flow Rate FiO2 12/09/16 15:35 36.8 67 22 146/70 (95) 96 Room Air 12/09/16 12:00 Room Air 12/09/16 11:52 36.6 67 18 133/72 (92) 97 Room Air 12/09/16 08:00 Room Air 12/09/16 07:35 36.7 57 19 110/61 (77) 96 Room Air 12/09/16 04:21 Room Air 12/09/16 04:00 36.6 70 18 121/58 (79) 96 Room Air 12/09/16 00:01 Room Air 12/08/16 23:33 36.7 72 21 160/65 (96) 99 Room Air 79 172/68 (102) 86 148/65 (92) 12/08/16 20:21 36.6 74 18 179/80 (113) 96 Room Air 12/08/16 20:00 Room Air 12/08/16 15:50 37.1 64 18 121/66 (84) 96 Room Air Physical Exam General Appearance: WD/WN, no apparent distress Eyes: PERRL, EOMI, sclerae normal Neck: supple, no adenopathy, no JVD, no carotid bruits, trachea midline Respiratory/Chest: lungs clear, normal breath sounds, no respiratory distress, no accessory muscle use Cardiovascular: regular rate, rhythm, no murmur Abdomen: normal bowel sounds, non tender, soft Extremities: non-tender, no pedal edema, no calf tenderness Neurologic/Psychiatric: alert, normal mood/affect, + pertinent finding (AOx1) Skin: warm/dry, no rash Laboratory Results Results Past 24 Hours Test 12/08/16 17:20 12/09/16 05:31 Range/Units Total Creatine Kinase 146 39-308 U/L Creatine Kinase MB 1.1 0.5-3.6 ng/ml Creatine Kinase MB Ratio 0.8 0-3.0 Troponin I < 0.015 0-0.045 ng/ml White Blood Count 11.60 4.8-10.8 K/uL Red Blood Count 3.69 4.7-6.1 M/uL Hemoglobin 10.6 14.0-18.0 g/dL Hematocrit 34.2 42-52 % Mean Corpuscular Volume 92.7 80-100 fL Mean Corpuscular Hemoglobin 28.7 25-34 pg Mean Corpuscular Hemoglobin Concent 31.0 32-36 g/dl Platelet Count 307 130-400 K/uL Mean Platelet Volume 10.0 7.4-10.4 fL Neutrophils (%) (Auto) 55.1 % Lymphocytes (%) (Auto) 16.1 % Monocytes (%) (Auto) 10.3 % Eosinophils (%) (Auto) 17.6 % Basophils (%) (Auto) 0.6 % Neutrophils # (Auto) 6.40 1.4-6.5 K/uL Lymphocytes # (Auto) 1.87 1.2-3.4 K/uL Monocytes # (Auto) 1.19 0.11-0.59 K/uL Eosinophils # (Auto) 2.04 0-0.5 K/uL Basophils # (Auto) 0.07 0-0.2 K/uL RDW Standard Deviation 48.5 36.4-46.3 fL RDW Coefficient of Variation 14.3 11.5-14.5 % Immature Granulocyte % (Auto) 0.3 % Immature Granulocyte # (Auto) 0.03 0.00-0.02 K/uL Sodium Level 145 136-145 mmol/L Potassium Level 3.9 3.5-5.1 mmol/L Chloride Level 115 98-107 mmol/L Carbon Dioxide Level 25 21-32 mmol/L Anion Gap 5.0 3-11 mmol/L Blood Urea Nitrogen 21 7-18 mg/dl Creatinine 1.10 0.60-1.40 mg/dl Est Creatinine Clear Calc Drug Dose 59.7 ml/min Estimated GFR () 78.4 Estimated GFR (Non- 67.7 BUN/Creatinine Ratio 19.1 10-20 Random Glucose 128 70-99 mg/dl Calcium Level 8.5 8.5-10.1 mg/dl Magnesium Level 2.3 1.8-2.4 mg/dl Assessment and Plan 71 yo M w/ past hx of Traumatic Brain injury (50 yrs prior) with assocaited LLE weakness, HTN, Ulcerative COlitis, presenting with increasing fatigue and hx of mechanical fall prior to arrival without preceding presyncope, syncope. S/P Fall, likely mechanical assocaited with TBI Head CT: Senescent changes and remote infarcts, Rt temporal encephalomalcia CT Lumbar SPine: unremarkable MRI: no evidence of acute infarct, subdural fluid collections suggestive of subdural hygromas MRA: no acute changes, 6 mmfusiform aneurysm, similar to previous Ambulatory dysfunction -likely secondary to to Hx of TBI -LLE weakness unchanged -likely contributor to fall Ulcerative colitis -stable -c/w Mesalamine PTOT Disposition -Transfer to Floor Continued [facility] stay due to: ambulation difficulties Discharge planning: home Resident Tracking Resident Involvement: Resident Care Provided Care Provided: Adult Hospital Medicine Reviewed: Pt Seen/Exam by Me History sitting in chair. denies any concerns oriented to only self. nursing reports no concerns overnight Constitutional: denies: fever Respiratory: negative: short of breath Cardiovascular: denies chest pain General Appearance: no apparent distress Respiratory: lungs clear, no respiratory distress Cardiovascular: regular rate, rhythm Neurologic/Psychiatric: alert Skin Characteristics: warm/dry Assessment/Plan Resident Physician Supervision Note: I was present with Dr. Magana in bedside. I verified the cervantes history and physical, reviewed labs and image studies, discussed the case with the resident and agree with the findings and care plan.
[2016-12-09] MEDS: QUETIAPINE FUMARATE 25 MG TAB PO SCH (21:15)
[2016-12-10 06:13] LABS: HEMATOCRIT 32.1 % (42-52); MEAN CELL VOLUME 93.9 fL (80-100); MEAN CORPUSCULAR HEMOGLOBIN 30.4 pg (25-34); MEAN CORPUSCULAR HGB CONC 32.4 g/dl (32-36); PLATELET COUNT 268 K/uL (130-400); RED BLOOD COUNT 3.42 M/uL (4.7-6.1); WHITE BLOOD COUNT 12.07 K/uL (4.8-10.8)
[2016-12-10 06:35] LABS: BUN/CREATININE RATIO 15.3 (10-20); CALCIUM 8.2 mg/dl (8.5-10.1); CREATININE 1.2 mg/dl (0.60-1.40); MAGNESIUM 2.1 mg/dl (1.8-2.4)
[2016-12-10 06:53] LABS: BASO % 0.4 %; BASO ABS # 0.05 K/uL (0-0.2); COMPLETE YES; IG% 0.2 %; LYMPH % 18.4 %; LYMPH ABS # 2.22 K/uL (1.2-3.4); MONO % 9.7 %; NEUT % 51.3 %
[2016-12-10 07:16] VITALS: BP 136/69; PULSE 58; TEMP 36.5; O2SAT 98
[2016-12-10] MEDS: NSS + 20MEQ KCL 1000ML 1,000 ML IV SCH (07:49)
[2016-12-10] MEDS: CYANOCOBALAMIN 500 MCG TAB (VIT B-12) PO SCH (07:50)
[2016-12-10 11:56] VITALS: BP 115/61; PULSE 60; O2SAT 99
[2016-12-10 14:57] VITALS: BP 154/75; PULSE 67; TEMP 36.6; O2SAT 98
[2016-12-10] MEDS ORDERED: NURSING VERBAL MED ORDER ONE (15:30)
--- NOTE | 2016-12-10 15:38 | Family Medicine Progress Note ---
Progress Note Date of Service Dec 10, 2016. Subjective Pt evaluation today including: conversation w/ patient, physical exam, review of inpatient medication list Pain: none PO Intake: good Patient feel well today denies any pain patient fell asleep and had change of mental status when we were in the room daughter phoned and asked to speak to physician Constitutional: No fever, No chills, No weakness Eyes: No worsening of vision, No diplopia ENT: No trouble swallowing Respiratory: No cough, No shortness of breath, No dyspnea on exertion Cardiovascular: No chest pain, No palpitations Abdomen: No pain, No nausea, No vomiting Musculoskeletal: No joint pain, No muscle pain Skin: No rash, No new/changing skin lesions, No color change Objective Vital Signs Date Time Temp Pulse Resp B/P (MAP) Pulse Ox O2 Delivery O2 Flow Rate FiO2 12/10/16 14:57 36.6 67 20 154/75 (101) 98 Room Air 12/10/16 08:00 Room Air 12/10/16 07:16 36.5 58 20 136/69 (91) 98 Room Air 12/10/16 00:00 Room Air 12/09/16 23:42 137/65 (89) 12/09/16 23:26 36.7 67 20 161/72 (101) 98 Room Air 12/09/16 17:35 36.5 64 16 148/70 (96) 99 Room Air 12/09/16 17:25 36.8 67 22 96 12/09/16 16:00 Room Air 12/09/16 15:35 36.8 67 22 146/70 (95) 96 Room Air Physical Exam General Appearance: WD/WN, no apparent distress Neck: supple, no JVD, no carotid bruits Respiratory/Chest: lungs clear, no respiratory distress, no accessory muscle use Cardiovascular: regular rate, rhythm, no JVD, no murmur Abdomen: normal bowel sounds, non tender, soft Extremities: non-tender, no calf tenderness, normal capillary refill Neurologic/Psychiatric: explosives detonator II-XII nml as tested, no motor/sensory deficits Skin: normal color, warm/dry, no rash Laboratory Results Results Past 24 Hours Test 12/10/16 05:35 12/10/16 11:54 Range/Units White Blood Count 12.07 4.8-10.8 K/uL Red Blood Count 3.42 4.7-6.1 M/uL Hemoglobin 10.4 14.0-18.0 g/dL Hematocrit 32.1 42-52 % Mean Corpuscular Volume 93.9 80-100 fL Mean Corpuscular Hemoglobin 30.4 25-34 pg Mean Corpuscular Hemoglobin Concent 32.4 32-36 g/dl Platelet Count 268 130-400 K/uL Mean Platelet Volume 10.0 7.4-10.4 fL Neutrophils (%) (Auto) 51.3 % Lymphocytes (%) (Auto) 18.4 % Monocytes (%) (Auto) 9.7 % Eosinophils (%) (Auto) 20.0 % Basophils (%) (Auto) 0.4 % Neutrophils # (Auto) 6.18 1.4-6.5 K/uL Lymphocytes # (Auto) 2.22 1.2-3.4 K/uL Monocytes # (Auto) 1.17 0.11-0.59 K/uL Eosinophils # (Auto) 2.42 0-0.5 K/uL Basophils # (Auto) 0.05 0-0.2 K/uL RDW Standard Deviation 49.7 36.4-46.3 fL RDW Coefficient of Variation 14.7 11.5-14.5 % Immature Granulocyte % (Auto) 0.2 % Immature Granulocyte # (Auto) 0.03 0.00-0.02 K/uL Sodium Level 144 136-145 mmol/L Potassium Level 4.0 3.5-5.1 mmol/L Chloride Level 115 98-107 mmol/L Carbon Dioxide Level 22 21-32 mmol/L Anion Gap 7.0 3-11 mmol/L Blood Urea Nitrogen 18 7-18 mg/dl Creatinine 1.20 0.60-1.40 mg/dl Est Creatinine Clear Calc Drug Dose 54.7 ml/min Estimated GFR () 70.6 Estimated GFR (Non- 60.9 BUN/Creatinine Ratio 15.3 10-20 Random Glucose 83 70-99 mg/dl Calcium Level 8.2 8.5-10.1 mg/dl Magnesium Level 2.1 1.8-2.4 mg/dl Vitamin B12 Level 1180 211-911 pg/mL Assessment and Plan 71 yo M w/ past hx of Traumatic Brain injury (50 yrs prior) with assocaited LLE weakness, HTN, Ulcerative COlitis, presenting with increasing fatigue and hx of mechanical fall prior to arrival without preceding presyncope, syncope. Fall - mechanical vs peripheral neuropathy vs seizure vs stroke vs infectious - stroke workup negative, B12 level elevated patient takes 1000mcg daily - WCC 12, repeat tomorrow, 20% eosinophils (no rashes but mesalamine can cause eosinophilia) - Head CT: Senescent changes and remote infarcts, Rt temporal encephalomalcia - CT Lumbar SPine: unremarkable - MRI: no evidence of acute infarct, subdural fluid collections suggestive of subdural hygromas - MRA: no acute changes, 6 mmfusiform aneurysm, similar to previous - Altered mental status while we were in the room- ordered EEG HTN -lisinopril -hydralazine PRN Ulcerative colitis -stable -c/w Mesalamine Rehab - ordered PTOT Depression -seroquel FULL CODE -- Resident Physician Supervision Note: I was present with PGY2 Dr. Joseph Willett during the history and exam. I discussed the case with the resident and agree with the findings and plan as documented in the note. Any exceptions or clarifications are listed here: none. During our visit the patient had no complaints. When we asked him to lay down in the bed he did so promptly then fell asleep and was difficulty to arouse. VSS no fever gen - NAD mouth - MMM neck - 1cm lymph node right neck heart - RRR, s1, s2, 2/6 ROBERTO RUSB lungs - CTA b/l abd - soft, no HSM ext - no edema skin - no rash labs - CBC with mild leukocytosis and eosinophilia BMP nl MRA brain - 6mm MCA aneurysm A/P: 1. h/o remote TBI with resulting bifrontal encephalomalacia & temporal encephalomalacia on right. 2. subdural hygromas which would suggest prior subdural hematomas. 3. eosinophilia without cause. 4. MCA aneurysm - 6mm. 5. recent fall. in light of #1, #5, and his odd episode today will obtain EEG to r/o seizures. check b12 level - last b12 was borderline low. d/c IVF. repeat BMP in am due to eosinophilia. dispo planning. Documented By: Miguel Kumar MD Continued [facility] stay due to: ambulation difficulties, home environment unsafe for pt
[2016-12-10] MEDS: QUETIAPINE FUMARATE 25 MG TAB PO SCH (20:21)
[2016-12-10 23:54] VITALS: BP 140/66; PULSE 67; TEMP 36.8; O2SAT 98
[2016-12-11 07:06] LABS: BASO % 0.5 %; BASO ABS # 0.05 K/uL (0-0.2); COMPLETE YES; HEMATOCRIT 34.2 % (42-52); IG% 0.2 %; LYMPH ABS # 1.87 K/uL (1.2-3.4); MEAN CELL VOLUME 91.2 fL (80-100); MEAN CORPUSCULAR HEMOGLOBIN 29.3 pg (25-34); MEAN CORPUSCULAR HGB CONC 32.2 g/dl (32-36); MEAN PLATELET VOLUME 9.4 fL (7.4-10.4); MONO % 8.4 %; NEUT % 53.9 %; PLATELET COUNT 283 K/uL (130-400); RED BLOOD COUNT 3.75 M/uL (4.7-6.1)
[2016-12-11 07:20] VITALS: BP 138/71; PULSE 65; TEMP 36.4; O2SAT 95
[2016-12-11] MEDS: LISINOPRIL/HCTZ 20/25MG TAB PO SCH (07:44)
[2016-12-11] MEDS: CYANOCOBALAMIN 500 MCG TAB (VIT B-12) PO SCH (07:44)
[2016-12-11 15:27] VITALS: BP 118/65; PULSE 64; TEMP 36.5; O2SAT 97
--- NOTE | 2016-12-11 15:51 | Family Medicine Progress Note ---
Progress Note Date of Service Dec 11, 2016. Subjective Pt evaluation today including: conversation w/ patient, physical exam, conversation w/ income tax consultant, review of inpatient medication list Pain: none PO Intake: good Voiding: no voiding problems Patient with no acute events overnight Patient admits to feeling well today Still awaiting EEG to be done Is eating well and is passing regular bowel movements Constitutional: No fever, No chills Eyes: No worsening of vision, No diplopia ENT: No hearing loss Respiratory: No cough, No sputum, No shortness of breath Cardiovascular: No chest pain, No palpitations Abdomen: No pain, No nausea, No vomiting, No diarrhea, No constipation Neurologic: No paralysis, No weakness, No numbness/tingling, No balance problems Medications Current Inpatient Medications Medications (Trade) Dose Ordered Sig/Jose Miguel Route Start Time Stop Time Status Last Admin Dose Admin Acetaminophen (Tylenol Tab) 650 mg Q4H PRN PO 12/08/16 01:45 01/07/17 01:44 Cyanocobalamin (Vitamin B-12 Tab) 1,000 mcg DAILY PO 12/08/16 09:00 01/07/17 08:59 12/11/16 07:44 1,000 MCG Quetiapine Fumarate (seroQUEL TAB) 25 mg Q4 PRN PO 12/08/16 01:45 01/07/17 01:44 Quetiapine Fumarate (seroQUEL TAB) 50 mg HS PO 12/08/16 21:00 01/07/17 20:59 12/10/16 20:21 50 MG Ondansetron HCl (Zofran Inj) 4 mg Q6H PRN IV 12/08/16 01:45 01/07/17 01:44 Hydralazine HCl (HydrALAZINE INJ) 10 mg Q4H PRN IV. 12/08/16 01:45 01/07/17 01:44 Miscellaneous Information (Order Awaiting Action) 1 ea QS N/A 12/08/16 08:00 01/07/17 07:59 Gadobutrol (Gadavist) 7 mmol UD PRN IV 12/08/16 10:45 12/12/16 10:44 HCTZ/Lisinopril (Prinzide 20-25MG Tab) 1 tab QAM PO 12/11/16 08:00 01/10/17 07:59 12/11/16 07:44 1 TAB Objective Vital Signs Date Time Temp Pulse Resp B/P (MAP) Pulse Ox O2 Delivery O2 Flow Rate FiO2 12/11/16 15:27 36.5 64 18 118/65 (82) 97 Room Air 12/11/16 08:00 Room Air 12/11/16 07:20 36.4 65 18 138/71 (93) 95 Room Air 12/11/16 00:00 Room Air 12/10/16 23:54 36.8 67 18 140/66 (90) 98 Room Air 12/10/16 20:00 Room Air Physical Exam General Appearance: WD/WN, no apparent distress Respiratory/Chest: chest non-tender, lungs clear, no respiratory distress, no accessory muscle use Cardiovascular: regular rate, rhythm, no JVD, no murmur Abdomen: normal bowel sounds, non tender, soft 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, no motor/sensory deficits, alert, normal mood/affect, + disoriented (unsure of date and place but knows his own name) Laboratory Results Results Past 24 Hours Test 12/11/16 06:53 Range/Units White Blood Count 11.00 4.8-10.8 K/uL Red Blood Count 3.75 4.7-6.1 M/uL Hemoglobin 11.0 14.0-18.0 g/dL Hematocrit 34.2 42-52 % Mean Corpuscular Volume 91.2 80-100 fL Mean Corpuscular Hemoglobin 29.3 25-34 pg Mean Corpuscular Hemoglobin Concent 32.2 32-36 g/dl Platelet Count 283 130-400 K/uL Mean Platelet Volume 9.4 7.4-10.4 fL Neutrophils (%) (Auto) 53.9 % Lymphocytes (%) (Auto) 17.0 % Monocytes (%) (Auto) 8.4 % Eosinophils (%) (Auto) 20.0 % Basophils (%) (Auto) 0.5 % Neutrophils # (Auto) 5.94 1.4-6.5 K/uL Lymphocytes # (Auto) 1.87 1.2-3.4 K/uL Monocytes # (Auto) 0.92 0.11-0.59 K/uL Eosinophils # (Auto) 2.20 0-0.5 K/uL Basophils # (Auto) 0.05 0-0.2 K/uL RDW Standard Deviation 48.0 36.4-46.3 fL RDW Coefficient of Variation 14.3 11.5-14.5 % Immature Granulocyte % (Auto) 0.2 % Immature Granulocyte # (Auto) 0.02 0.00-0.02 K/uL Erythrocyte Sedimentation Rate 42 0-14 mm/hr Assessment and Plan 71 yo M w/ past hx of Traumatic Brain injury (50 yrs prior) with assocaited LLE weakness, HTN, Ulcerative Colitis, presenting with increasing fatigue and hx of mechanical fall prior to arrival without preceding presyncope, syncope. Fall - mechanical vs peripheral neuropathy vs seizure vs stroke vs infectious - stroke workup negative, B12 level elevated patient takes 1000mcg daily - WCC 12, repeat tomorrow, 20% eosinophils (no rashes but mesalamine can cause eosinophilia) - Head CT: Senescent changes and remote infarcts, Rt temporal encephalomalcia - CT Lumbar Spine: unremarkable - MRI: no evidence of acute infarct, subdural fluid collections suggestive of subdural hygromas - MRA: no acute changes, 6 mm fusiform aneurysm --> will need follow up MRA in 1 year. Intervention done when aneurysm greater than 10mm - EEG still pending HTN -lisinopril -hydralazine PRN Ulcerative colitis -stable -c/w Mesalamine Rehab - Home with home health according to pt and ot recommendations Depression -seroquel FULL CODE -- Resident Physician Supervision Note: I was present with PGY2 Dr. Joseph Willett during the history and exam. I discussed the case with the resident and agree with the findings and plan as documented in the note. Any exceptions or clarifications are listed here: none. No issues overnight. During my visit patient reports feeling good; he was eating dinner. VSS no fever gen - NAD mouth - MMM heart - RRR, s1, s2, 1-2/6 ROBERTO RUSB lungs - CTA b/l abd - soft, no HSM ext - no edema skin - no rash labs - CBC with mild leukocytosis and eosinophilia - latter still present and persisting BMP nl EEG pending A/P: 1. h/o remote TBI with resulting bifrontal encephalomalacia & temporal encephalomalacia on right. 2. subdural hygromas which would suggest prior subdural hematomas. 3. eosinophilia - mesalamine?? 4. MCA aneurysm - 6mm. 5. recent fall. cleared for home by PT/OT if EEG is negative d/c home tomorrow AM will need CBC followed as outpatient Documented By: Miguel Kumar MD Continued [facility] stay due to: ambulation difficulties, home environment unsafe for pt
[2016-12-11] MEDS: QUETIAPINE FUMARATE 25 MG TAB PO SCH (21:35)
[2016-12-11 23:10] VITALS: BP 149/77; PULSE 79; TEMP 36.5; O2SAT 96
[2016-12-12 07:14] VITALS: BP 131/74; PULSE 62; TEMP 36.5; O2SAT 97
[2016-12-12] MEDS: CYANOCOBALAMIN 500 MCG TAB (VIT B-12) PO SCH (08:44)
[2016-12-12] MEDS: LISINOPRIL/HCTZ 20/25MG TAB PO SCH (08:44)
--- NOTE | 2016-12-12 10:22 | Discharge Instructions ---
Discharge Instructions Date of Service Dec 12, 2016. Admission Reason for Admission: Lower Extremity Weakness Discharge Discharge Diagnosis / Problem: Unexplained fall Discharge Goals Goal(s): Diagnostic testing Activity Recommendations Activity Limitations: per Instructions/Follow-up section . Instructions / Follow-Up Instructions / Follow-Up You were brought to the hospital because you had a fall at home We did several imaging studies and we did not find any new changes in your brain. We also did an EEG to check the electrical activity of your brain and we did not find any seizures. You will need to follow up with your PCP Dr. Braswell on Saturday or early next week. If you have any worsening confusion, limb weakness, headaches, difficulty with your vision then please come back to the emergency department. Current Hospital Diet Patient's current hospital diet: Regular Diet Discharge Diet Recommended Diet: Regular Diet Pending Studies Studies pending at discharge: no Medical Emergencies . Who to Call and When: Medical Emergencies: If at any time you feel your situation is an emergency, please call 911 immediately. . Non-Emergent Contact Non-Emergency issues call your: Primary Care Provider . . "Provider Documentation" section prepared by Joseph Willett. . VTE Core Measure Inpt VTE Proph given/why not?: SCD's
--- NOTE | 2016-12-12 12:26 | EEG Procedure Note ---
EEG Procedure Note Date of Service Dec 12, 2016. Start / End Times Start Time: 6:34 AM End Time: 6:[address] Guardado History Fall, history of traumatic brain injury, seizure-like activity Home Medication List Scheduled Cyanocobalamin (Vitamin B-12), 1,000 MCG PO DAILY Lisinopril/Hctz (Prinzide 20-25MG), 1 TAB PO QAM Mesalamine (Lialda), 1.2 GM PO BID Quetiapine Fumarate (Seroquel), 50 MG PO HS Scheduled PRN Quetiapine Fumarate (Seroquel), 25 MG PO Q4 PRN for Agitation Inpatient Medication List Current Inpatient Medications Medications (Trade) Dose Ordered Sig/Jose Miguel Route Start Time Stop Time Status Last Admin Dose Admin Acetaminophen (Tylenol Tab) 650 mg Q4H PRN PO 12/08/16 01:45 01/07/17 01:44 Cyanocobalamin (Vitamin B-12 Tab) 1,000 mcg DAILY PO 12/08/16 09:00 01/07/17 08:59 12/12/16 08:44 1,000 MCG Quetiapine Fumarate (seroQUEL TAB) 25 mg Q4 PRN PO 12/08/16 01:45 01/07/17 01:44 Quetiapine Fumarate (seroQUEL TAB) 50 mg HS PO 12/08/16 21:00 01/07/17 20:59 12/11/16 21:35 50 MG Ondansetron HCl (Zofran Inj) 4 mg Q6H PRN IV 12/08/16 01:45 01/07/17 01:44 Hydralazine HCl (HydrALAZINE INJ) 10 mg Q4H PRN IV. 12/08/16 01:45 01/07/17 01:44 Miscellaneous Information (Order Awaiting Action) 1 ea QS N/A 12/08/16 08:00 01/07/17 07:59 HCTZ/Lisinopril (Prinzide 20-25MG Tab) 1 tab QAM PO 12/11/16 08:00 01/10/17 07:59 12/12/16 08:44 1 TAB Description This is a 21 electrode EEG with a single channel dedicated to limited EKG. The electrodes were placed in accordance with the International 10-20 system. This study was done in the hospital. There is a symmetrically distributed posterior dominant rhythm of 9-10 Hz. There is a normal anterior to posterior organization. Frontal beta activity is observed. Photic stimulation is unremarkable. Movement artifact occurs intermittently throughout the study. Focal slowing is not observed. Definitive epileptiform abnormality is not appreciated. Interpretation This routine EEG appears to be within normal limits. There is a normal- appearing background rhythm and normal frontal beta activity. The observed intermittent movement artifact is not significantly interfere with interpretation of the study. Clinical Correlation This is a normal-appearing EEG in spite of this patient's reported history of fall and possible seizure-like activity. A normal routine EEG does not completely exclude a diagnosis of epilepsy, however. If there is additional concern regarding whether or not this patient may be having seizures, I would recommend ambulatory EEG monitoring which can be arranged through the neurology office. Please see the initial neurology consultation this patient by Dr. Kennedy for further clinical information.
[2016-12-12 15:15] VITALS: BP 131/74; PULSE 62; TEMP 36.5; O2SAT 97
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
== END 2016-12-12 19:00 | disposition home health service (06) | DRG 93 ==
LOC: EDBD 21:37 → C.EDB 21:38 → C.2T 12-08 01:36 → ENRESERV 12-08 01:46 → C.2T 12-08 19:18 → ENRESERV 12-09 16:23 → C.4E 12-09 17:33
PROVIDERS: ADMIT Hospitalist; ATTEND Internal Medicine
DX: S06.9X9S Unspecified intracranial injury with loss of consciousness of unspecified duration, sequela (principal); M62.81 Muscle weakness (generalized); J45.909 Unspecified asthma, uncomplicated; I10 Essential (primary) hypertension; D18.02 Hemangioma of intracranial structures; F17.200 Nicotine dependence, unspecified, uncomplicated; K52.9 Noninfective gastroenteritis and colitis, unspecified; R45.1 Restlessness and agitation; G93.89 Other specified disorders of brain; Z79.899 Other long term (current) drug therapy; F32.9 Major depressive disorder, single episode, unspecified; Y92.009 Unspecified place in unspecified non-institutional (private) residence as the place of occurrence of the external cause; V89.2XXS Person injured in unspecified motor-vehicle accident, traffic, sequela

== ENCOUNTER → 2017-06-27 | Outpatient (CLI) | payer BC ==
[~2017-06-27] MED LIST changes: +CYAN500T PO; -CYAN50TA2 PO; +MESA1.2T PO; +QUET1TAB30 PO
[2017-06-27 09:34] LABS: ALBUMIN 2.8 gm/dl (3.4-5.0); ALT/SGPT 33 U/L (12-78); AST/SGOT 15 U/L (15-37); BLOOD UREA NITROGEN 27 mg/dl (7-18); CARBON DIOXIDE 25 mmol/L (21-32); CREATININE 1.14 mg/dl (0.60-1.40); GLUCOSE 86 mg/dl (70-99); POTASSIUM 3.8 mmol/L (3.5-5.1); SODIUM 143 mmol/L (136-145)
[2017-06-27 09:44] LABS: ALKALINE PHOSPHATASE 82 U/L (45-117); TOTAL PROTEIN 6.5 gm/dl (6.4-8.2)
== END ==
LOC: C.LABCC 08:52
PROVIDERS: ATTEND Internal Medicine
DX: S06.9X0A Unspecified intracranial injury without loss of consciousness, initial encounter (principal); X58.XXXA Exposure to other specified factors, initial encounter

== ENCOUNTER → 2017-06-28 | Outpatient (CLI) | payer BC ==
[2017-06-28 08:25] LABS: BASO % 0.7 %; BASO ABS # 0.06 K/uL (0-0.2); COMPLETE YES; EOS % 7.3 %; EOS ABS # 0.65 K/uL (0-0.5); HEMOGLOBIN 12.6 g/dL (14.0-18.0); IG# 0.02 K/uL (0.00-0.02); IG% 0.2 %; LYMPH % 21.3 %; LYMPH ABS # 1.89 K/uL (1.2-3.4); MEAN CELL VOLUME 91.1 fL (80-100); MEAN CORPUSCULAR HEMOGLOBIN 29.4 pg (25-34); MEAN CORPUSCULAR HGB CONC 32.3 g/dl (32-36); MEAN PLATELET VOLUME 12.6 fL (7.4-10.4); MONO % 15.7 %; MONO ABS # 1.39 K/uL (0.11-0.59); NEUT % 54.8 %; NEUT ABS # 4.85 K/uL (1.4-6.5); PLATELET COUNT 200 K/uL (130-400); RED BLOOD COUNT 4.28 M/uL (4.7-6.1); RED CELL DISTRIBUTION WIDTH CV 15.3 % (11.5-14.5); RED CELL DISTRIBUTION WIDTH SD 51.1 fL (36.4-46.3); WHITE BLOOD COUNT 8.86 K/uL (4.8-10.8)
== END ==
LOC: C.LABCC 07:44
DX: S06.9X0A Unspecified intracranial injury without loss of consciousness, initial encounter (principal); X58.XXXA Exposure to other specified factors, initial encounter

== ENCOUNTER → 2017-07-11 | Outpatient (CLI) | payer BC ==
[2017-07-11 09:10] LABS: BASO % 0.6 %; BASO ABS # 0.06 K/uL (0-0.2); EOS % 6.2 %; EOS ABS # 0.57 K/uL (0-0.5); HEMATOCRIT 40.8 % (42-52); HEMOGLOBIN 13.1 g/dL (14.0-18.0); IG# 0.02 K/uL (0.00-0.02); LYMPH % 21.4 %; LYMPH ABS # 1.98 K/uL (1.2-3.4); MEAN CELL VOLUME 91.7 fL (80-100); MEAN CORPUSCULAR HEMOGLOBIN 29.4 pg (25-34); MEAN CORPUSCULAR HGB CONC 32.1 g/dl (32-36); MONO % 15.6 %; MONO ABS # 1.44 K/uL (0.11-0.59); NEUT ABS # 5.17 K/uL (1.4-6.5); PLATELET COUNT 212 K/uL (130-400); RED CELL DISTRIBUTION WIDTH CV 15.3 % (11.5-14.5); RED CELL DISTRIBUTION WIDTH SD 51.4 fL (36.4-46.3); WHITE BLOOD COUNT 9.24 K/uL (4.8-10.8)
[2017-07-11 09:17] LABS: BLOOD UREA NITROGEN 27 mg/dl (7-18); CALCIUM 8.9 mg/dl (8.5-10.1); CARBON DIOXIDE 26 mmol/L (21-32); CREATININE 1.26 mg/dl (0.60-1.40); GLUCOSE 95 mg/dl (70-99); POTASSIUM 4.2 mmol/L (3.5-5.1); SODIUM 139 mmol/L (136-145)
[2017-07-11 09:19] LABS: PTT PATIENT 26.6 SECONDS (21.0-31.0)
== END ==
LOC: C.LABCC 08:53
PROVIDERS: ATTEND Internal Medicine
DX: Z01.818 Encounter for other preprocedural examination (principal)

== ENCOUNTER → 2017-07-29 | Outpatient (CLI) | payer BC | LOC: C.LABCC 10:28 | PROVIDERS: ATTEND Internal Medicine | DX: Z87.820 Personal history of traumatic brain injury (principal) ==

== ENCOUNTER 2019-07-01 14:42 | Inpatient (IN) ==
[2019-07-01] MEDS ORDERED: SODIUM CHLORIDE 0.9% 1000ML 1,000 ML IV ONE (15:04)
--- NOTE | 2019-07-01 15:13 | Emergency Department Note ---
Entered by Eve Brewster acting as a scribe for Shane Judd MD History of Present Illness General Chief complaint: Fever Time Seen by Provider: 07/01/19 14:59 Source: patient, family (sister) and EMS History of Present Illness Onset (ago): hour(s) (last night) Location: head Pain Consistency: + other (episode) Quality: + other (fever) Associated symptoms: + other (+confused; +violent; +milk appearance urine; - abdominal pain ); no cough The patient is a 74 year old male, with past medical history of dementia and TBI, who presents to the Emergency Room with complaints of an episode of a fever that was first noticed last night, according to EMS. EMS reports that the patient is from [facility], and EMS states the fever was first noted there night. EMS states the patient has been more confused than normal and at times, violent. EMS reports the patients temperature was 103.2 this morning. They also note the patient was given 650 mg Tylenol at 1230 today. EMS reports that [facility] noted that the patients urine appeared like milk. EMS also reports that the patient has experienced multiple falls over the last 25 hours. The patient states he is in no pain, and he denies abdominal pain or a cough. The patients sister notes of a rash that is all over the patient that has been bothering the patient for several months. The sister reports the patient has seen a receptionist doctor's office for this rash and given a topical agent for it. She states the rash has improved from the beginning, but she states it is still present. She denies knowing the cause of the rash. Home Medications Home Medications Medication Instructions Recorded Confirmed Type acetaminophen 325 mg capsule 650 mg PO Q6H PRN 12/25/18 07/01/19 History bisacodyl 10 mg rectal suppository 10 mg OH DAILY PRN 12/25/18 07/01/19 History divalproex 500 mg tablet,delayed 500 mg PO BID 12/25/18 07/01/19 History release lisinopril 20 1 tab PO QAM 12/25/18 07/01/19 History mg-hydrochlorothiazide 25 mg tablet mesalamine 1.2 gram tablet,delayed 2.4 gm PO BID 12/25/18 07/01/19 History release cyanocobalamin (vitamin B-12) 500 500 mcg PO QAM 12/26/18 07/01/19 History mcg tablet quetiapine 25 mg tablet 25 mg PO BID 12/26/18 07/01/19 History acetaminophen 650 mg 650 mg PO Q12H 04/21/19 07/01/19 History tablet,extended release magnesium hydroxide 400 mg/5 mL 30 ml PO .COMPLEX PRN ml 04/21/19 07/01/19 History oral suspension acitretin 25 mg PO QDL 07/01/19 07/01/19 History nystatin 1 applic TOPICAL DAILY 07/01/19 07/01/19 History Allergies Allergy/AdvReac Type Severity Reaction Status Date / Time No Known Allergies Allergy Mild Verified 07/01/19 15:08 Past Med/Surg History Medical History Asthma Dementia Encephalopathy acute Hypertension (Chronic) Lower extremity weakness Status post fall Ulcerative colitis Surgical History History of mandibular surgery Family History Father Hypertension Social History Preferred Language: [place] Communication Ability: Impaired Communication Ability Comment: tbi/dementia Program Technician Required: No Beliefs That Will Affect Care: None Current Living Situation: Care Home Current Living Situation Comment: [place] Feels Safe at Home: Yes Smoking Status: Unknown if ever smoked Hx Alcohol Use: No Review of Systems See HPI for pertinent positives & negatives. and A total of 10 systems reviewed and were otherwise negative Physical Exam Vital Signs Vital Signs - 24 hr 07/01/19 15:04 07/01/19 15:24 07/01/19 15:25 Temperature 38.9 C H Temperature Source Rectal Pulse Rate 120 H 112 H Pulse Rate [Apical] Pulse Rate from SpO2 Sensor Pulse Rhythm [Apical] Respiratory Rate 40 H 20 Blood Pressure 141/52 H 141/52 H Blood Pressure [Left Arm] Blood Pressure Mean 75 81 Blood Pressure Mean [Left Arm] Pulse Oximetry 97 93 Oxygen Delivery Method Room Air Room Air Room Air Sepsis Recent Fever Within 48 Hours Yes Sepsis New/Unexplained Change in Mental Status Yes Sepsis Action Taken by Nursing No Action Required 07/01/19 15:40 07/01/19 15:50 07/01/19 16:00 Temperature Temperature Source Pulse Rate 121 H 119 H 114 H Pulse Rate [Apical] 124 H Pulse Rate from SpO2 Sensor Pulse Rhythm [Apical] Regular Respiratory Rate 25 H 26 H 23 Blood Pressure Blood Pressure [Left Arm] 161/82 H Blood Pressure Mean Blood Pressure Mean [Left Arm] 108 Pulse Oximetry 97 Oxygen Delivery Method Room Air Room Air Room Air Sepsis Recent Fever Within 48 Hours Sepsis New/Unexplained Change in Mental Status Sepsis Action Taken by Nursing 07/01/19 16:10 07/01/19 16:20 07/01/19 16:30 Temperature Temperature Source Pulse Rate 119 H 119 H 123 H Pulse Rate [Apical] Pulse Rate from SpO2 Sensor Pulse Rhythm [Apical] Respiratory Rate 28 H 25 H 31 H Blood Pressure Blood Pressure [Left Arm] Blood Pressure Mean Blood Pressure Mean [Left Arm] Pulse Oximetry Oxygen Delivery Method Room Air Room Air Room Air Sepsis Recent Fever Within 48 Hours Sepsis New/Unexplained Change in Mental Status Sepsis Action Taken by Nursing 07/01/19 16:40 07/01/19 16:49 07/01/19 16:51 Temperature Temperature Source Pulse Rate 128 H 128 H 128 H Pulse Rate [Apical] Pulse Rate from SpO2 Sensor 129 H 129 H Pulse Rhythm [Apical] Respiratory Rate 21 24 26 H Blood Pressure 161/82 H Blood Pressure [Left Arm] Blood Pressure Mean 95 Blood Pressure Mean [Left Arm] Pulse Oximetry 96 97 Oxygen Delivery Method Room Air Room Air Room Air Sepsis Recent Fever Within 48 Hours Sepsis New/Unexplained Change in Mental Status Sepsis Action Taken by Nursing 07/01/19 17:00 07/01/19 17:10 07/01/19 17:20 Temperature Temperature Source Pulse Rate 129 H 126 H 122 H Pulse Rate [Apical] Pulse Rate from SpO2 Sensor 129 H 126 H 123 H Pulse Rhythm [Apical] Respiratory Rate 28 H 31 H 31 H Blood Pressure Blood Pressure [Left Arm] Blood Pressure Mean Blood Pressure Mean [Left Arm] Pulse Oximetry 96 95 94 Oxygen Delivery Method Room Air Room Air Room Air Sepsis Recent Fever Within 48 Hours Sepsis New/Unexplained Change in Mental Status Sepsis Action Taken by Nursing 07/01/19 17:30 07/01/19 17:40 07/01/19 17:50 Temperature Temperature Source Pulse Rate 116 H 119 H 118 H Pulse Rate [Apical] Pulse Rate from SpO2 Sensor 116 H 118 H 118 H Pulse Rhythm [Apical] Respiratory Rate 26 H 32 H 24 Blood Pressure Blood Pressure [Left Arm] Blood Pressure Mean Blood Pressure Mean [Left Arm] Pulse Oximetry 94 94 93 Oxygen Delivery Method Room Air Room Air Room Air Sepsis Recent Fever Within 48 Hours Sepsis New/Unexplained Change in Mental Status Sepsis Action Taken by Nursing 07/01/19 18:00 07/01/19 18:04 07/01/19 18:10 Temperature Temperature Source Pulse Rate 110 H 110 H 109 H Pulse Rate [Apical] 110 H Pulse Rate from SpO2 Sensor 111 H 110 H 109 H Pulse Rhythm [Apical] Respiratory Rate 25 H 21 23 Blood Pressure 102/68 Blood Pressure [Left Arm] 106/68 Blood Pressure Mean 72 Blood Pressure Mean [Left Arm] 80 Pulse Oximetry 91 92 92 Oxygen Delivery Method Room Air Room Air Room Air Sepsis Recent Fever Within 48 Hours Sepsis New/Unexplained Change in Mental Status Sepsis Action Taken by Nursing 07/01/19 18:20 07/01/19 18:30 07/01/19 18:40 Temperature Temperature Source Pulse Rate 122 H 121 H Pulse Rate [Apical] Pulse Rate from SpO2 Sensor 121 H 120 H 118 H Pulse Rhythm [Apical] Respiratory Rate 34 H 30 H Blood Pressure Blood Pressure [Left Arm] Blood Pressure Mean Blood Pressure Mean [Left Arm] Pulse Oximetry 95 94 94 Oxygen Delivery Method Room Air Room Air Room Air Sepsis Recent Fever Within 48 Hours Sepsis New/Unexplained Change in Mental Status Sepsis Action Taken by Nursing 07/01/19 18:50 07/01/19 19:00 07/01/19 19:10 Temperature Temperature Source Pulse Rate 117 H Pulse Rate [Apical] Pulse Rate from SpO2 Sensor 116 H 109 H 118 H Pulse Rhythm [Apical] Respiratory Rate 16 Blood Pressure Blood Pressure [Left Arm] Blood Pressure Mean Blood Pressure Mean [Left Arm] Pulse Oximetry 94 93 94 Oxygen Delivery Method Room Air Room Air Room Air Sepsis Recent Fever Within 48 Hours Sepsis New/Unexplained Change in Mental Status Sepsis Action Taken by Nursing General: Non-ill appearing, demented, older male in no acute distress. HEENT: Normal cephalic atraumatic. Pupils are equal round and reactive to light. Extraocular movements are intact. Oropharynx is pink with moist mucous membranes. No swelling of the mouth lips or tongue. Neck: Supple with a midline trachea. No meningeal signs or stiffness, no JVD or bruits. No Stridor. Chest: Clear to auscultation bilaterally. No wheezes or rhonchi. No increased work of breathing. Heart: regular rate and rhythm. Abdomen: Soft nontender, nondistended without rebound guarding or rigidity. Extremities: No cyanosis clubbing or edema. No calf tenderness or asymmetry Spine/Back. Non tender to palpation. No CVA tenderness Skin: Diffused rash that is mostly on patient's extremities which the patient's sister states has been present for months and unchanged. Rash is red and lacy appearing. Neurologic exam: Cranial nerves two through 12 are intact. Motor and sensation are intact and symmetrical throughout. Baseline confusion. Answers some questions appropriately. Poor short term memory at baseline. Course Course 1500: Past medical records reviewed. The patient was evaluated in room C1B. A complete history and physical exam was performed. 1629: I was informed that the patient has become violent with staff. 1636: I reviewed the [facility]. Dr. Parikh will evaluate the patient for further management. Consultations Consultation #1: I reviewed the patient's [facility]. Dr. Parikh will evaluate the patient for further management. Time: 16:36 Administered Medications Heparin Sodium (Porcine) (Heparin Sodium (Porcine)) 5,000 units SQ Q12 BHUMI Stop: 07/31/19 21:01 Last Admin: 07/01/19 21:37 Dose: 5,000 units Documented by: [id number] Cosigned by: [id number] Sodium Chloride (Nss 1000ml) 1,000 mls @ 80 mls/hr IV .[id number] BHUMI Stop: 07/31/19 21:01 Last Admin: 07/01/19 21:34 Dose: 80 mls/hr Documented by: [id number] Ceftriaxone Sodium 2,000 mg/ (Dextrose) 70 mls @ 140 mls/hr IV Q24H BHUMI Stop: 07/08/19 21:59 Last Infusion: 07/01/19 22:04 Dose: 0 mls/hr Documented by: [id number] Admin: 07/01/19 21:34 Dose: 140 mls/hr Documented by: [id number] Valproic Acid 500 mg/ Dextrose 55 mls @ 55 mls/hr IV BID BHUMI Stop: 07/31/19 21:29 Last Admin: 07/01/19 22:02 Dose: 55 mls/hr Documented by: [id number] Quetiapine Fumarate (Seroquel) 25 mg PO BID BHUMI Stop: 07/31/19 21:01 Last Admin: 07/01/19 22:02 Dose: Not Given Documented by: [id number] Discontinued Medications Sodium Chloride (Nss 1000ml) 1,000 mls @ 999 mls/hr IV .[id number] ONE Stop: 07/01/19 16:04 Last Infusion: 07/01/19 17:01 Dose: 0 mls/hr Documented by: [id number] Admin: 07/01/19 15:56 Dose: 999 mls/hr Documented by: [id number] Piperacillin Sod/Tazobactam Sod (Zosyn) 4.5 gm in 120 mls @ 240 mls/hr IV NOW ONE Stop: 07/01/19 15:43 Last Infusion: 07/01/19 16:48 Dose: 0 mls/hr Documented by: [id number] Admin: 07/01/19 16:12 Dose: 240 mls/hr Documented by: [id number] Lorazepam (Ativan) 0.5 mg in 1 mls @ 1 mls/min IV NOW STA Stop: 07/01/19 16:31 Last Admin: 07/01/19 16:34 Dose: 1 mls/min Documented by: [id number] Medical Decision Making Differential Diagnosis Differential diagnoses include sepsis, UTI, dehydration, electrolyte or metabolic imbalance, cardiac disease, pneumonia, amongst others that were considered. Medical Records Attestation: I reviewed the patient's medical records. Home Medications Current Medication List: was personally reviewed by me Laboratory Data Attestation: I reviewed the patient's lab results. Result diagrams: 07/01/19 15:54 07/01/19 15:54 Lab Results 07/01/19 07/01/19 07/01/19 Range/Units 15:30 15:54 15:54 WBC 14.98 H (4.8-10.8) K/uL RBC 3.58 L (4.7-6.1) M/uL Hgb 11.1 L (14.0-18.0) g/dL Hct 33.7 L (42-52) % MCV 94.1 (80-100) fL MCH 31.0 (25-34) pg MCHC 32.9 (32-36) g/dL RDW Std Deviation 50.7 H (36.4-46.3) fL RDW Coeff of Calvin 14.8 H (11.5-14.5) % Plt Count 145 (130-400) K/uL MPV 11.0 H (7.4-10.4) fL Immature Gran % (Auto) 0.4 % Neut % (Auto) 73.6 % Lymph % (Auto) 12.7 % Izard % (Auto) 13.0 % Eos % (Auto) 0.1 % Baso % (Auto) 0.2 % Immature Gran # (Auto) 0.06 H (0.00-0.02) K/uL Neut # (Auto) 11.04 H (1.4-6.5) K/uL Lymph # (Auto) 1.90 (1.2-3.4) K/uL [place] # (Auto) 1.94 H (0.11-0.59) K/uL Eos # (Auto) 0.01 (0-0.5) K/uL Baso # (Auto) 0.03 (0-0.2) K/uL PT 10.9 (9.0-12.0) Seconds INR 1.1 (0.9-1.1) APTT 27.8 (21.0-31.0) Seconds PTT Ratio 1.0 Sodium (136-145) mmol/L Potassium (3.5-5.1) mmol/L Chloride (98-107) mmol/L Carbon Dioxide (21-32) mmol/L Anion Gap (3-11) BUN (7-18) mg/dl Creatinine (0.6-1.4) mg/dl Est Cr Clr Drug Dosing ml/min Est GFR ( Amer) Est GFR (Non-Af Amer) BUN/Creatinine Ratio (10-20) Glucose (70-99) mg/dl Lactate (0.4-2.0) mmol/L Calcium (8.5-10.1) mg/dl Magnesium (1.8-2.4) mg/dl Total Bilirubin (0.2-1) mg/dl AST (15-37) U/L ALT (12-78) U/L Alkaline Phosphatase (45-117) U/L Troponin I (0-0.045) ng/ml NT-Pro-B Natriuret Pep (0-900) pg/ml Total Protein (6.4-8.2) gm/dl Albumin (3.4-5.0) gm/dl Globulin (2.5-4.0) gm/dl Albumin/Globulin Ratio (0.9-2) TSH (0.300-4.500) uIu/ml Urine Color Yellow Urine Appearance Turbid A (Clear) Urine pH 5.0 (4.5-7.5) Ur Specific [place] 1.016 (1.000-1.030) Urine Protein 1+ H (Negative) Urine Glucose (UA) Negative (Negative) Urine Ketones Negative (Negative) Urine Blood 3+ H (Negative) Urine Nitrite Negative (Negative) Urine Bilirubin Negative (Negative) Urine Urobilinogen Negative (Negative) Ur Leukocyte Esterase 3+ H (Negative) Urine WBC (Auto) >30 H (0-5) /hpf Urine RBC (Auto) 5-10 H (0-4) /hpf U Hyaline Cast (Auto) 5-10 H (0-5) /lpf U Epithel Cells (Auto) 10-20 H (0-5) /lpf Urine Bacteria (Auto) 4+ H (Negative) 07/01/19 07/01/19 07/01/19 Range/Units 15:54 15:54 15:54 WBC (4.8-10.8) K/uL RBC (4.7-6.1) M/uL Hgb (14.0-18.0) g/dL Hct (42-52) % MCV (80-100) fL MCH (25-34) pg MCHC (32-36) g/dL RDW Std Deviation (36.4-46.3) fL RDW Coeff of Calvin (11.5-14.5) % Plt Count (130-400) K/uL MPV (7.4-10.4) fL Immature Gran % (Auto) % Neut % (Auto) % Lymph % (Auto) % [place] % (Auto) % Eos % (Auto) % Baso % (Auto) % Immature Gran # (Auto) (0.00-0.02) K/uL Neut # (Auto) (1.4-6.5) K/uL Lymph # (Auto) (1.2-3.4) K/uL [place] # (Auto) (0.11-0.59) K/uL Eos # (Auto) (0-0.5) K/uL Baso # (Auto) (0-0.2) K/uL PT (9.0-12.0) Seconds INR (0.9-1.1) APTT (21.0-31.0) Seconds PTT Ratio Sodium 135 L (136-145) mmol/L Potassium 4.1 (3.5-5.1) mmol/L Chloride 104 (98-107) mmol/L Carbon Dioxide 24 (21-32) mmol/L Anion Gap 7.0 (3-11) BUN 41 H (7-18) mg/dl Creatinine 1.70 H (0.6-1.4) mg/dl Est Cr Clr Drug Dosing 37.4 ml/min Est GFR ( Amer) 45.4 Est GFR (Non-Af Amer) 39.1 BUN/Creatinine Ratio 24.3 H (10-20) Glucose 103 H (70-99) mg/dl Lactate 1.8 (0.4-2.0) mmol/L Calcium 8.7 (8.5-10.1) mg/dl Magnesium 1.9 2.0 (1.8-2.4) mg/dl Total Bilirubin 0.3 (0.2-1) mg/dl AST 40 H (15-37) U/L ALT 28 (12-78) U/L Alkaline Phosphatase 80 (45-117) U/L Troponin I < 0.015 (0-0.045) ng/ml NT-Pro-B Natriuret Pep 1124 H (0-900) pg/ml Total Protein 6.5 (6.4-8.2) gm/dl Albumin 2.4 L (3.4-5.0) gm/dl Globulin 4.1 H (2.5-4.0) gm/dl Albumin/Globulin Ratio 0.6 L (0.9-2) TSH 0.434 (0.300-4.500) uIu/ml Urine Color Urine Appearance (Clear) Urine pH (4.5-7.5) Ur Specific [place] (1.000-1.030) Urine Protein (Negative) Urine Glucose (UA) (Negative) Urine Ketones (Negative) Urine Blood (Negative) Urine Nitrite (Negative) Urine Bilirubin (Negative) Urine Urobilinogen (Negative) Ur Leukocyte Esterase (Negative) Urine WBC (Auto) (0-5) /hpf Urine RBC (Auto) (0-4) /hpf U Hyaline Cast (Auto) (0-5) /lpf U Epithel Cells (Auto) (0-5) /lpf Urine Bacteria (Auto) (Negative) Imaging Data Radiologist's Impression: Radiology results as stated below per my review and the radiologist's interpretation: XR chest 1V portable CLINICAL HISTORY: SEPSIS dyspnea COMPARISON STUDY: 12/07/2016 FINDINGS: The bones soft tissues and hemidiaphragms are normal. The cardiomediastinal silhouette is normal. The lungs are clear. The pulmonary vasculature is normal. IMPRESSION: Negative chest. ACT 112: Negative or not required by law. The above report was generated using voice recognition software. It may contain grammatical, syntax or spelling errors. Electronically signed by: Salas Kc M.D. 07/01/2019 3:47 PM ECG Data Attestation: I personally reviewed and interpreted this ECG as follows: Indication: + altered mental status and + tachycardia Rate (beats per minute): 116 Rhythm: + sinus tachycardia ECG [place]: + Left axis deviation ECG ST segments: + Nonspecific ST abnormalities ECG Findings: no PACs and no PVCs Change: the following changes noted (rate has increased ) Blood Pressure Blood Pressure Findings: Elevated blood pressure Blood Pressure Disposition: further management by hospitalist MDM Narrative This patient comes in as described above. He was placed in room C1. He was brought in by ambulance. I did discuss the case with the paramedics and got history from them. I also obtain further history from the sister who arrived. This patient is a [facility] patient at [facility], she does have some baseline dementia he has been getting more weak and confused he has had a high temperature. They did a urine specimen which looks like milk according to the paramedics. They did send it here and is very suspicious for infection. I did order sepsis order set. IV access was established prior to arrival he did r eceive one liter IV. I ordered additional liter of IV normal saline. Multiple blood testing was obtained. White blood count is elevated. He does have a normal lactic acid of 1.8. he does have some renal insufficiency. His urinalysis does suggest a UTI. He was given IV Zosyn. He was also having some agitation as he does have dementia and was given 0.5 mg Ativan this helped calm him down. I did consult the hospitalist to see him in the ER for admission and hydration further evaluation. I talked to sister at length who was at the bedside as well. Impression & Plan Sepsis, AMS (altered mental status), Acute UTI, Weakness Discharge Plan Visit Data *Final* Discharge Date/Time: 07/01/19 20:14 Chief Complaint: Fever ED Provider: Shane Judd Discharge Problem: Sepsis, AMS (altered mental status), Acute UTI, Weakness Patient Disposition: Admitted As Inpatient Discharge Instructions Interventions: ED Discharge Assessment Last Done: 07/01/19 20:14 Discharge Problem: Sepsis Qualifiers: Sepsis type: sepsis due to unspecified organism Sepsis acute organ dysfunction status: unspecified Qualified Code(s): A41.9 - Sepsis, unspecified organism AMS (altered mental status) Qualifiers: Altered mental status type: unspecified Qualified Code(s): R41.82 - Altered mental status, unspecified The scribe's documentation has been prepared under my direction and personally reviewed by me in its entirety. I confirm that the note above accurately reflects all work, treatment, procedures, and medical decision making performed by me.
[2019-07-01] MEDS ORDERED: PIPERACILL/TAZOBAC CONSULT ACTIVE PRN (15:14)
[2019-07-01] MEDS ORDERED: PIPERACILLIN/TAZOBACTAM 4.5 GM/120 ML BAG IV ONE (15:14)
--- NOTE | 2019-07-01 15:49 | XRay Report ---
XR chest 1V portable CLINICAL HISTORY: SEPSIS dyspnea COMPARISON STUDY: 12/07/2016 FINDINGS: The bones soft tissues and hemidiaphragms are normal. The cardiomediastinal silhouette is n ormal. The lungs are clear. The pulmonary vasculature is normal. IMPRESSION: Negative chest. ACT 112: Negative or not required by law. The above report was generated using voice recognition software. It may contain grammatical, syntax or spelling errors. Electronically signed by: Salas Kc M.D. 07/01/2019 3:47 PM
[2019-07-01 16:02] LABS: Hematocrit (blood only) 33.7 % (42-52); Hemoglobin 11.1 g/dL (14.0-18.0); Mean Corpuscular Hgb Conc 32.9 g/dL (32-36); Mean Corpuscular Volume 94.1 fL (80-100); Platelet Count 145 K/uL (130-400); RDW Coefficient of Variation 14.8 % (11.5-14.5); RDW Standard Deviation 50.7 fL (36.4-46.3); Red Blood Count 3.58 M/uL (4.7-6.1); White Blood Count 14.98 K/uL (4.8-10.8)
[2019-07-01 16:05] LABS: Appearance Urine Turbid (Clear); Bacteria Urine Automated 4+ (Negative); Bilirubin Urine Negative (Negative); Blood Urine 3+ (Negative); Color Urine Yellow; Glucose Urine UA Negative (Negative); Ketones Urine Negative (Negative); Leukocyte Esterase Urine 3+ (Negative); Nitrite Urine Negative (Negative); Protein Urine 1+ (Negative); Specific Gravity Urine 1.016 (1.000-1.030); Urobilinogen Urine Negative (Negative); WBC Urine Automated >30 /hpf (0-5)
[2019-07-01 16:16] LABS: INR 1.1 (0.9-1.1); Partial Thromboplastin Time 27.8 Seconds (21.0-31.0); Prothrombin Time 10.9 Seconds (9.0-12.0)
[2019-07-01 16:22] LABS: Alanine Aminotransferase 28 U/L (12-78); Albumin Level 2.4 gm/dl (3.4-5.0); Aspartate Aminotransferase 40 U/L (15-37); BUN Creatinine Ratio 24.3 (10-20); Blood Urea Nitrogen 41 mg/dl (7-18); Calcium 8.7 mg/dl (8.5-10.1); Carbon Dioxide 24 mmol/L (21-32); Chloride 104 mmol/L (98-107); Creatinine Clr Calc Pharmacy 37.4 ml/min; Est GFR (African American) 45.4; Est GFR (Non-African American) 39.1; Glucose 103 mg/dl (70-99); Magnesium 1.9 mg/dl (1.8-2.4); Potassium 4.1 mmol/L (3.5-5.1); Sodium 135 mmol/L (136-145)
[2019-07-01 16:27] LABS: Albumin Globulin Ratio 0.6 (0.9-2); Alkaline Phosphatase 80 U/L (45-117); Bilirubin,Total 0.3 mg/dl (0.2-1); Globulin 4.1 gm/dl (2.5-4.0); Total Protein 6.5 gm/dl (6.4-8.2); Troponin I < 0.015 ng/ml (0-0.045)
[2019-07-01] MEDS ORDERED: LORazepam 0.5 MG/1 ML VIAL IV STA (16:30)
[2019-07-01 16:36] LABS: Basophils # (auto) 0.03 K/uL (0-0.2); Basophils % (auto) 0.2 %; Eosinophils # (auto) 0.01 K/uL (0-0.5); Eosinophils % (auto) 0.1 %; Immature Granulocytes # (auto) 0.06 K/uL (0.00-0.02); Immature Granulocytes % (auto) 0.4 %; Lymphocytes % (auto) 12.7 %; Monocytes # (auto) 1.94 K/uL (0.11-0.59); Neutrophils # (auto) 11.04 K/uL (1.4-6.5); Neutrophils % (auto) 73.6 %
--- NOTE | 2019-07-01 19:37 | History & Physical Report ---
Date of Service July 01, 2019 Assessment & Plan (1) Sepsis: [facility] telemetry Vital signs every 4 hours Started ceftriaxone 2 g IV daily Urinary culture pending US renal and bladder pending to rule out possible pyelonephritis DVT prophylaxis SCDs and teds Patient is DNR/DNI Present on Admission?: Yes (2) AMS (altered mental status): Most likely due to sepsis. Continue monitoring. Present on Admission?: Yes (3) Acute UTI: As management above Present on Admission?: Yes (4) Weakness: Consider physical and Occupational Therapy after the acute phase. Present on Admission?: Yes (5) Hypertension: Hold blood pressure medicine while patient is hypotensive. Resume lisinopril 20 mghydrochlorothiazide 25 mg p.o. every morning once her b lood pressure is within normal limits and above 120/80 Present on Admission?: Yes (6) Dementia: Patient has severe Alzheimer dementia. Continue vitamin B12 500 MCG's p.o. every morning, Hold Seroquel 25 mg p.o. twice daily while patient has altered mental status because it may cause drowsiness. Continue valproic acid 500 mg p.o. twice daily Valproic acid level pending Present on Admission?: Yes History of Present Illness Chief Complaint: Fever and confusion Primary Care Provider: Sher Braswell MD The patient is a 74 years old male with past medical history of dementia and TBI who presents to the emergency room with a complaint of an episode of a fever that was first noticed last night per EMS. Patient is coming from [facility]. EMS reports that patient was more confused than usual and became violent. Patient temperature on arrival of EMS was 103.2 Fahrenheit this morning. Patient was given 650 mg of Tylenol. Patient is in his usual state of confusion due to dementia and his urine appears to be very clouded. EMS reports that patient also experienced multiple falls over past 24 hours. Patient is poor historian and most of the history is given by his sister who was asked to his bedside. Sister reports that patient would like to be DNR/DNI. Labs are reviewed: WBCs 14.98, hemoglobin 11.1, hematocrit 33.7, platelets 145. PT 10.9, INR 1.1, APTT 27.8, sodium 135, potassium 4.1, chloride 104, carbon dioxide 24 anion gap 7, BUN 41, creatinine 1.7, GFR 39.1, lactate 1.8-->2.1, BNP 11.24, total protein 6.5, Albumin 2.4, procalcitonin 7.28. TSH 0.43. Urine turbid 1+ protein, 3+ blood, 3+ leukocyte esterase, over 30 WBCs 5-10 RBCs, 4+ bacteria. Chest x-ray the bones of the soft tissue and hemidiaphragm are normal. The cardiomediastinal silhouette is normal. The lungs are clear the pulmonary vascularity is normal. Negative chest. Decision was made to admit patient to [facility] on telemetry for sepsis and urinary tract infection. Allergies Allergy/AdvReac Type Severity Reaction Status Date / Time No Known Allergies Allergy Mild Verified 07/01/19 15:08 Home Medications Home Medications Medication Instructions Recorded Confirmed Type acetaminophen 325 mg capsule 650 mg PO Q6H PRN 12/25/18 07/01/19 History bisacodyl 10 mg rectal suppository 10 mg SD DAILY PRN 12/25/18 07/01/19 History divalproex 500 mg tablet,delayed 500 mg PO BID 12/25/18 07/01/19 History release lisinopril 20 1 tab PO QAM 12/25/18 07/01/19 History mg-hydrochlorothiazide 25 mg tablet mesalamine 1.2 gram tablet,delayed 2.4 gm PO BID 12/25/18 07/01/19 History release cyanocobalamin (vitamin B-12) 500 500 mcg PO QAM 12/26/18 07/01/19 History mcg tablet quetiapine 25 mg tablet 25 mg PO BID 12/26/18 07/01/19 History acetaminophen 650 mg 650 mg PO Q12H 04/21/19 07/01/19 History tablet,extended release magnesium hydroxide 400 mg/5 mL 30 ml PO .COMPLEX PRN ml 04/21/19 07/01/19 History oral suspension acitretin 25 mg PO QDL 07/01/19 07/01/19 History nystatin 1 applic TOPICAL DAILY 07/01/19 07/01/19 History Past Med/Surg History Medical History Asthma Dementia Encephalopathy acute Hypertension (Chronic) Lower extremity weakness Status post fall Ulcerative colitis Surgical History History of mandibular surgery Family History Father Hypertension Social History Preferred Language: Azeri Communication Ability: Impaired Communication Ability Comment: tbi/dementia Aesthetics Instructor Required: No Beliefs That Will Affect Care: None Current Living Situation: Prison Current Living Situation Comment: [facility] Feels Safe at Home: Yes Smoking Status: Unknown if ever smoked Hx Alcohol Use: No Review of Systems Review of Systems: All systems reviewed & are unremarkable except as noted in HPI & below Physical Exam Constitutional: WD/WN, vitals as above well developed and + ill appearing Eyes: PERRL, conjunctivae normal, anicteric sclerae ENMT: external ear and nose normal, oropharynx normal Neck: trachea midline, no thyromegaly Respiratory: normal respiratory effort, lungs clear to auscultation Cardiovascular: Heart Sounds: normal S1, normal S2 and + murmur Vessels: + JVD and dorsalis pedis pulses present Extremities: + pedal edema Gastrointestinal (Abdomen): normal bowel sounds, soft, nontender, no hepatosplenomegaly Musculoskeletal: no cyanosis or clubbing, extremities motor strength 5/5 Skin: no rashes, warm and dry Neurologic: patellar DTR's 2+ bilat, sensation intact Psychiatric: A+Ox3, euthymic affect Lymphatic: no cervical or axillary lymphadenopathy Results & Data Vital Signs (Past 12 Hours) Vital Signs Temp Pulse Pulse Resp BP BP Pulse Ox 07/01/19 18:00 110 H 22 106/68 92 07/01/19 16:00 124 H 34 H 161/82 H 97 07/01/19 15:25 38.9 C H 112 H 20 141/52 H 93 07/01/19 15:04 97 Code Status & VTE Plan Code Status DNR/DNI VTE Prophylaxis Plan VTE Prophylaxis will be ordered: Yes PG Care Time/CCT Total # of Minutes Spent Total Time Spent with Patient: Total time spent is greater than 50% in coordination of care (as documented) at patient's floor/unit and/or counseling patient: (1) Sepsis Sepsis acute organ dysfunction status: unspecified Sepsis type: sepsis due to unspecified organism Qualified Code(s): A41.9 - Sepsis, unspecified organism (2) AMS (altered mental status) Altered mental status type: unspecified Qualified Code(s): R41.82 - Altered mental status, unspecified
[2019-07-01] MEDS ORDERED: POLYETHYLENE (MIRALAX) 17 GM PACK PO PRN (21:02)
[2019-07-01] MEDS ORDERED: MAGNESIUM HYDROXIDE SUSP 30 ML UDC PO PRN ×2 (21:02)
[2019-07-01] MEDS ORDERED: bisacodyL 10 MG SUPP PR PRN (21:02)
[2019-07-01] MEDS ORDERED: DIVALPROEX DELAY RELEASE 500 MG TAB PO SCH (21:02)
[2019-07-01] MEDS ORDERED: SODIUM CHLORIDE 0.9% 1000ML 1,000 ML IV SCH (21:02)
[2019-07-01] MEDS ORDERED: ACETAMINOPHEN 325 MG TAB PO PRN (21:02)
[2019-07-01] MEDS ORDERED: ONDANSETRON INJ 2 MG/ML 2 ML VIAL IV PRN (21:02)
[2019-07-01] MEDS ORDERED: ALUMINUM/MAGNESIUM SUSP 30 ML UDC PO PRN (21:02)
[2019-07-01] MEDS ORDERED: INFLUENZA VACCINE HIGH DOSE 65+ 0.5 ML SYR IM ONE (21:25)
[2019-07-01] MEDS ORDERED: INFLUENZA ADMINISTRATION CHARGE ONE (21:25)
[2019-07-01 21:34] LABS: Thyroid Stimulating Hormone 0.434 uIu/ml (0.300-4.500)
[2019-07-01] MEDS: HEPARIN SOD 5,000 UNIT/0.5 ML VIAL SQ SCH (21:37)
[2019-07-01] MEDS ORDERED: cefTRIAXone SODIUM 2,000 MG in DEXTROSE 5% 50 ML IV SCH (22:00)
[2019-07-01] MEDS ORDERED: cefTRIAXone SODIUM 2,000 MG/70 ML BAG IV SCH (22:00)
[2019-07-01] MEDS: VALPROATE SOD 500 MG in DEXTROSE 5% 50 ML IV SCH (22:02)
[2019-07-01] MEDS: QUETIAPINE FUMARATE 25 MG TABLET PO SCH (22:02)
[2019-07-01 22:38] LABS: Influenza A virus by PCR Neg for Influ A (Neg); Influenza B virus by PCR Neg for Influ B (Neg)
--- NOTE | 2019-07-01 23:23 | Electrocardiogram Report ---
Test Reason : Blood Pressure : / mmHG Vent. Rate : 116 BPM Atrial Rate : 116 BPM P-R Int : 152 ms QRS Dur : 088 ms QT Int : 318 ms P-R-T Axes : 049 -39 037 degrees QTc Int : 442 ms Sinus tachycardia Left axis deviation Nonspecific ST abnormality Abnormal ECG When compared with ECG of 10-DEC-2016 07:10, Vent. rate has increased BY 57 BPM Confirmed by Miguel Mao ([id number]) on 07/01/2019 11:22:57 PM Referred By: [facility] Confirmed By:Miguel Mao
[2019-07-02] MEDS: ACETAMINOPHEN 1,000 MG/100 ML VIAL IV PRN ×2 (02:54→23:35)
--- NOTE | 2019-07-02 05:58 | Ultrasound Report ---
US renal/blad retro comp HISTORY: Urinary tract infection possible pyelo COMPARISON: None. FINDINGS: Right kidney: Maximum dimension 10.3 cm. No evidence for hydronephrosis. Normal corticomedullary diff erentiation and cortical thickness. Left kidney: No hydronephrosis. The remaining evaluation of the left kidney is nondiagnostic due to patient cooperation issues. Bladder: No bladder wall thickening. The bilateral ureteral jets were identified. IMPRESSION: 1. No evidence for hydronephrosis. 2. Normal right renal ultrasound. 3. Incomplete evaluation left kidney has a patient could not cooperate ACT 112: Negative or not required by law. The above report was generated using voice recognition software. It may contain grammatical, syntax or spelling errors. Electronically signed by: Salas Kc M.D. 07/02/2019 5:57 AM
[2019-07-02 06:06] LABS: Hemoglobin 10.4 g/dL (14.0-18.0); Mean Corpuscular Hemoglobin 30.3 pg (25-34); Mean Corpuscular Hgb Conc 32.5 g/dL (32-36); Mean Corpuscular Volume 93.3 fL (80-100); Mean Platelet Volume 11.4 fL (7.4-10.4); Platelet Count 135 K/uL (130-400); RDW Coefficient of Variation 14.8 % (11.5-14.5); RDW Standard Deviation 50.2 fL (36.4-46.3); Red Blood Count 3.43 M/uL (4.7-6.1); White Blood Count 14.11 K/uL (4.8-10.8)
[2019-07-02 06:14] LABS: Estimated Average Glucose 131 mg/dl; Hemoglobin A1C 6.2 % (4.5-5.6)
[2019-07-02 06:33] LABS: Basophils # (auto) 0.03 K/uL (0-0.2); Basophils % (auto) 0.2 %; Dohle Bodies 1+; Eosinophils # (auto) 0.01 K/uL (0-0.5); Eosinophils % (auto) 0.1 %; Immature Granulocytes # (auto) 0.04 K/uL (0.00-0.02); Immature Granulocytes % (auto) 0.3 %; Lymphocytes # (auto) 1.58 K/uL (1.2-3.4); Lymphocytes % (auto) 11.2 %; Monocytes % (auto) 13.5 %; Neutrophils # (auto) 10.55 K/uL (1.4-6.5); Neutrophils % (auto) 74.7 %
[2019-07-02 06:37] LABS: Albumin Level 2.4 gm/dl (3.4-5.0); BUN Creatinine Ratio 25.7 (10-20); Calcium 8.4 mg/dl (8.5-10.1); Creatinine Clr Calc Pharmacy 39.5 ml/min; Est GFR (African American) 48.4; Est GFR (Non-African American) 41.8; Potassium 3.5 mmol/L (3.5-5.1)
[2019-07-02 06:40] LABS: Albumin Globulin Ratio 0.6 (0.9-2); Bilirubin,Total 0.3 mg/dl (0.2-1); Globulin 3.8 gm/dl (2.5-4.0); Total Protein 6.2 gm/dl (6.4-8.2)
[2019-07-02] MEDS ORDERED: PIPERACILL/TAZOBAC CONSULT ACTIVE PRN (08:36)
[2019-07-02] MEDS: CYANOCOBALAMIN 500 MCG TABLET (VITAMIN B-12) PO SCH (08:39)
[2019-07-02] MEDS: LISINOPRIL/HCTZ 20/25MG 1 TAB PO SCH (08:39)
[2019-07-02] MEDS: QUETIAPINE FUMARATE 25 MG TABLET PO SCH ×2 (08:39→20:42)
[2019-07-02] MEDS: VALPROATE SOD 500 MG in DEXTROSE 5% 50 ML IV SCH ×2 (08:42→20:41)
[2019-07-02] MEDS: HEPARIN SOD 5,000 UNIT/0.5 ML VIAL SQ SCH ×2 (08:43→20:41)
[2019-07-02] MEDS ORDERED: PIPERACILLIN/TAZOBACTAM 3.375 GM in DEXTROSE 5% 100 ML IV ONE (09:00)
[2019-07-02] MEDS: NYSTATIN POWDER 15GM BTL EXT SCH (09:00)
[2019-07-02] MEDS: ERTAPENEM SODIUM 1,000 MG in SODIUM CHLORIDE 0.9% 50 ML IV SCH (09:48)
[2019-07-02] MEDS ORDERED: NSS + 20MEQ KCL 20 MEQ/1,000 ML BAG IV SCH (16:15)
--- NOTE | 2019-07-02 18:02 | Hospitalist Progress Note ---
Date of Service July 02, 2019 Assessment & Plan (1) Sepsis: Change ceftriaxone to ertapenem as last few urine cultures grew E.Coli ESBL Urinary culture pending US renal normal given patient's inability to cooperate very well for the image Afebrile since 0 (2) AMS (altered mental status): Agitated and combative at times, still requiring 1:1 Secondary to UTI (3) Acute UTI: As management above (4) Weakness: Consider physical and Occupational Therapy after the acute phase. (5) Hypertension: Hold blood pressure medicine while patient is hypotensive. Resume lisinopril 20 mghydrochlorothiazide 25 mg p.o. every morning once her blood pressure is within normal limits and above 120/80 (6) Dementia: Patient has severe Alzheimer dementia. Continue vitamin B12 500 MCG's p.o. every morning, Continue Seroquel 25 mg p.o. twice daily Continue valproic acid 500 mg p.o. twice daily Valproic acid level pending - will have to monitor while on ertapenem Palliative care consult (7) DVT prophylaxis: heparin subq Subjective Mr. Howard does not open his eyes when I speak, he answers that he has pain everywhere but otherwise answers no to ROS. Later in the afternoon I met with his sister who is the POA and his son at bedside. I updated her and we discussed bringing on palliative care for a goals of care discussion given patient's progressive dementia. She reports that at baseline he does not talk much. Physical Exam Physical Exam: General: agitated Eyes: refused to open eyes Respiratory: chest non tender, clear to auscultation, normal breath sounds, no respiratory distress, no accessory muscle use Cardiac: regular rate and rhythm, no rub or gallop, no murmur, no edema, no jvd GI/: active bowel sounds, no abd pain or tenderness, soft, non distended Extremities: normal range of motion, normal strength, non tender Neuro/Psych: eyes closed, oriented to self, agitated Skin: normal color, dry Results & Data Vital Signs (Past 12 Hours) Vital Signs Temp Pulse Pulse Resp BP Pulse Ox 07/02/19 14:56 92 H 07/02/19 14:28 37.4 C 93 H 20 104/51 L 90 07/02/19 13:12 107 H 22 131/66 94 07/02/19 07:32 70 07/02/19 07:29 36.9 C 81 20 123/75 94 PG Care Time/CCT Total # of Minutes Spent Total Time Spent with Patient: Total time spent is greater than 50% in co ordination of care (as documented) at patient's floor/unit and/or counseling patient: Coding Level of Care Code 58489 Subseq Hosp Care Lvl 2 Diagnoses Sepsis A41.9 Sepsis acute organ dysfunction status: unspecified Sepsis type: sepsis due to unspecified organism AMS (altered mental status) R41.82 Altered mental status type: unspecified Acute UTI N39.0 Weakness R53.1 Hypertension I10 Dementia F03.90 DVT prophylaxis Z29.9 (1) Sepsis Sepsis acute organ dysfunction status: unspecified Sepsis type: sepsis due to unspecified organism Qualified Code(s): A41.9 - Sepsis, unspecified organism (2) AMS (altered mental status) Altered mental status type: unspecified Qualified Code(s): R41.82 - Altered mental status, unspecified
[2019-07-03 06:49] LABS: Basophils # (auto) 0.03 K/uL (0-0.2); Basophils % (auto) 0.2 %; Eosinophils # (auto) 0.02 K/uL (0-0.5); Eosinophils % (auto) 0.2 %; Hematocrit (blood only) 34.3 % (42-52); Hemoglobin 11.3 g/dL (14.0-18.0); Immature Granulocytes # (auto) 0.03 K/uL (0.00-0.02); Immature Granulocytes % (auto) 0.2 %; Lymphocytes # (auto) 0.75 K/uL (1.2-3.4); Lymphocytes % (auto) 5.9 %; Mean Corpuscular Hemoglobin 30.9 pg (25-34); Mean Corpuscular Hgb Conc 32.9 g/dL (32-36); Mean Corpuscular Volume 93.7 fL (80-100); Mean Platelet Volume 11.2 fL (7.4-10.4); Monocytes % (auto) 17.2 %; Neutrophils # (auto) 9.73 K/uL (1.4-6.5); Neutrophils % (auto) 76.3 %; Platelet Count 165 K/uL (130-400); RDW Coefficient of Variation 14.9 % (11.5-14.5); RDW Standard Deviation 50.9 fL (36.4-46.3); Red Blood Count 3.66 M/uL (4.7-6.1); White Blood Count 12.76 K/uL (4.8-10.8)
[2019-07-03 07:23] LABS: Albumin Level 2.2 gm/dl (3.4-5.0); BUN Creatinine Ratio 23.5 (10-20); Calcium 8.7 mg/dl (8.5-10.1); Creatinine Clr Calc Pharmacy 44.5 ml/min; Est GFR (African American) 55.9; Est GFR (Non-African American) 48.2; Potassium 3.3 mmol/L (3.5-5.1)
[2019-07-03 07:26] LABS: Albumin Globulin Ratio 0.5 (0.9-2); Bilirubin,Total 0.3 mg/dl (0.2-1); Globulin 4.4 gm/dl (2.5-4.0); Total Protein 6.6 gm/dl (6.4-8.2)
[2019-07-03] MEDS: CYANOCOBALAMIN 500 MCG TABLET (VITAMIN B-12) PO SCH (08:16)
[2019-07-03] MEDS: VALPROATE SOD 500 MG in DEXTROSE 5% 50 ML IV SCH ×2 (08:16→20:27)
[2019-07-03] MEDS: LISINOPRIL/HCTZ 20/25MG 1 TAB PO SCH (08:16)
[2019-07-03] MEDS ORDERED: POTASSIUM CHLORIDE 20 MEQ TABCR PO STA (08:26)
--- NOTE | 2019-07-03 09:48 | Palliative Care Consultation ---
Date of Consultation July 03, 2019 Assessment & Plan (1) Goals of care, counseling/discussion: This is a 74 year old male who is a permanent resident at [facility], was transferred to the [facility] with increased agitation and altered mental status. Upon arrival, he was found to be febrile with a temperature of 103.2. A renal ultrasound and chest x-ray were performed and negative. He is being treated for urosepsis. His WBC was 14.98 on admission and is trending downward after initiation of abx, currently 12.76, still having leukocytosis. His renal function is showing some improvement BUN 34, creatinine 1.43. He is being treated for urosepsis. 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 He is receiving Seroquel for agitation related to his advanced dementia with behavioral disturbance. Palliative Care was consulted to discuss goals of care. -I met with Mr. Howard in room 255. He was sitting in his bed, just finishing his breakfast in no apparent distress. -He was able to look at me, say gigi, tell me he lives in [place] and that he was not having pain. Meaningful conversation was limited. -From a senile degeneration of the brain standpoint, after evaluation, on the FAST scale I would place him at 6e/7a, indicating moderately severe dementia, e ntering severe dementia. He does require staff to anticipate and meet all of his ADL needs. -He has multiple small scratch penny on his body in various areas, including his feet, appears to be self inflicted from scratching with his nails. He also has a generalized truncal rash -I did speak to the patients sister, Kaye on the telephone ([phone]) to discuss goals of care. It appears patient is returning to baseline status. -She stated that she would like him to get additional care at [facility] when he returns. She agrees that he has shown decline over the past 6 months becoming less interactive and less ambulatory. -We discussed Hospice at length and, after lengthy discussion about their capabilities, she would like to pursue having hospice in place upon his return to [facility]. I advised I would have the continuous pillowcase cutter reach out to her to discuss agency choice and coordination of the services. -We discussed a POLST form and she said that he does not have a living will but she is the legal POA. She confirmed DNR/DNI, comfort measures only with no additional hospitalizations, trial abx, and no artificial nutrition/hydration. -I explained that he is not actively dying and likely has months to years, with natural progression of his disease. -He does have periods of outbursts and agitation. He has Seroquel prescribed 25 mg po BID. Should his agitation continue, would consider Zyprexa -He is on contact isolation for EBLS in his urine. -PPS: 30% (2) Dementia: (3) AMS (altered mental status): Altered mental status type: unspecified Qualified Code(s): R41.82 - Altered mental status, unspecified (4) Sepsis: Sepsis acute organ dysfunction status: unspecified Sepsis type: sepsis due to unspecified organism Qualified Code(s): A41.9 - Sepsis, un specified organism (5) Acute UTI: Supervising Physician Co-Signing Physician Notes Chart reviewed, patient seen and examined, no friends or family at bedside. Collaborated with BRIAN Whiteside PE: Patient awake and alert, no acute distress. HEENT: EOMI, hearing grossly within normal limits Respirations: Clear breath sounds bilaterally CV: Regular rate, no edema Abdomen: Soft, nontender Neuro: Alert, oriented to person Agree with above note, assessment and plan as per BRIAN Whiteside. Will continue to work with patient's sister/POA-plan to discharge back to [facility] under hospice care. History of Present Illness Reason for Consultation: Goals of Care Requesting Physician: Marli TORRES Attending Physician: Tylor Chi MD History of Present Illness This is a 74 year old male who is a permanent resident at [facility], was transferred to the [facility] with increased agitation and altered mental status. Upon arrival, he was found to be febrile with a temperature of 103.2. A renal ultrasound and chest x-ray were performed and negative. He is being treated for urosepsis. His WBC was 14.98 on admission and is trending downward after initiation of abx, currently 12.76, still having leukocytosis. His renal function is showing some improvement BUN 34, creatinine 1.43. He is being treated for urosepsis. 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 He is receiving Seroquel for agitation related to his advanced dementia with behavioral disturbance. Palliative Care was consulted to discuss goals of care. Please see A/P for further details. Thank you kindly for involving the palliative care team with this patient. We will follow as needed. Allergies Allergy/AdvReac Type Severity Reaction Status Date / Time No Known Allergies Allergy Mild Verified 07/01/19 15:08 Home Medications Home Medications Medication Instructions Recorded Confirmed Type acetaminophen 325 mg capsule 650 mg PO Q6H PRN 12/25/18 07/01/19 History bisacodyl 10 mg rectal suppository 10 mg UT DAILY PRN 12/25/18 07/01/19 History divalproex 500 mg tablet,delayed 500 mg PO BID 12/25/18 07/01/19 History release lisinopril 20 1 tab PO QAM 12/25/18 07/01/19 History mg-hydrochlorothiazide 25 mg tablet mesalamine 1.2 gram tablet,delayed 2.4 gm PO BID 12/25/18 07/01/19 History release cyanocobalamin (vitamin B-12) 500 500 mcg PO QAM 12/26/18 07/01/19 History mcg tablet quetiapine 25 mg tablet 25 mg PO BID 12/26/18 07/01/19 History acetaminophen 650 mg 650 mg PO Q12H 04/21/19 07/01/19 History tablet,extended release magnesium hydroxide 400 mg/5 mL 30 ml PO .COMPLEX PRN ml 04/21/19 07/01/19 History oral suspension acitretin 25 mg PO QDL 07/01/19 07/01/19 History nystatin 1 applic TOPICAL DAILY 07/01/19 07/01/19 History Patient History Medical History (Updated 07/03/19 @ 09:54 by BRIAN Whiteside) Asthma Dementia Encephalopathy acute Goals of care, counseling/discussion Hypertension (Chronic) Lower extremity weakness Status post fall Ulcerative colitis Surgical History History of mandibular surgery Family History Father Hypertension Social History Preferred Language: Swedish Communication Ability: Impaired Communication Ability Comment: tbi/dementia Maid Supervisor Required: No Beliefs That Will Affect Care: None Current Living Situation: [facility] Current Living Situation Comment: [facility] Feels Safe at Home: Yes Smoking Status: Unknown if ever smoked Hx Alcohol Use: No Review of Systems Review of Systems: Unobtainable due to cognitive status Physical Exam Constitutional: + ill appearing, + thin, + frail appearing, cooperative and + combative (intermittently ) Respiratory: normal respiratory effort, lungs clear to auscultation Cardiovascular: RRR, no murmur, no edema Gastrointestinal (Abdomen): normal bowel sounds, soft, nontender, no hepatosplenomegaly Skin: scattered scabbed lesions at various locations on his body, appears to be self inflicted from his nails Psychiatric: Orientation: alert, oriented to person and cooperative Thought Content: + cognitive distortions Insight: + poor insight Judgement: + poor judgement Genitourinary: incontinent of urine, attempts to use urinal Lymphatic: no cervical or axillary lymphadenopathy Results & Data Vital Signs (Past 12 Hours) Vital Signs Temp Pulse Pulse Resp BP Pulse Ox 07/03/19 07:38 100 H 07/03/19 06:57 36.6 C 103 H 18 142/78 H 94 07/02/19 23:14 37.6 C H 107 H 103 H 22 142/76 H 94 PG Care Time/CCT Total # of Minutes Spent Total Time Spent with Patient: Total time spent is greater than 50% in coordination of care (as documented) at patient's floor/unit and/or counseling patient: 70 Coding Level of Care Code 33606 Inpt Consult Level 3 Diagnoses Goals of care, counseling/discussion Z71.89 Dementia F03.90 AMS (altered mental status) R41.82 Altered mental status type: unspecified Sepsis A41.9 Sepsis acute organ dysfunction status: unspecified Sepsis type: sepsis due to unspecified organism Acute UTI N39.0 Time Spent (min) 70 Time Spent Midlevel Total time spent 70 minutes > 50% of that time spent assessing the patient, discussing goals of care with the family and completing a POLST form.
[2019-07-03] MEDS: QUETIAPINE FUMARATE 25 MG TABLET PO SCH ×2 (10:30→20:28)
[2019-07-03] MEDS: HEPARIN SOD 5,000 UNIT/0.5 ML VIAL SQ SCH ×2 (10:48→20:27)
[2019-07-03] MEDS: NYSTATIN POWDER 15GM BTL EXT SCH (10:49)
[2019-07-03] MEDS: ERTAPENEM SODIUM 1,000 MG in SODIUM CHLORIDE 0.9% 50 ML IV SCH (11:12)
--- NOTE | 2019-07-03 14:55 | Hospitalist Progress Note ---
Date of Service July 03, 2019 Assessment & Plan (1) Sepsis: Continue Ertapenem for E.Coli ESBL US renal normal given patient's inability to cooperate very well for the image Afebrile (2) AMS (altered mental status): Septic/metabolic encephalopathy Calmer today with resumption of Seroquel Secondary to UTI (3) Acute UTI: As management above US guided IV for Ertapenem administration at [facility] (4) Weakness: (5) Hypertension: Resume lisinopril 20 mghydrochlorothiazide 25 mg p.o. every morning once her blood pressure is within normal limits and above 120/80 (6) Dementia: Patient has severe Alzheimer dementia. Continue vitamin B12 500 MCG's p.o. every morning, Continue Seroquel 25 mg p.o. twice daily Continue valproic acid 500 mg p.o. twice daily Valproic acid level slightly low - will check again tomorrow Palliative care consult - patient will return to [facility] on hospice (7) Acute kidney injury superimposed on CKD: Creatinine improving from 1.7 on admission Will give another 1000 mls due to lower urine ouptut (8) DVT prophylaxis: heparin subq DC to [facility] tomorrow Subjective Mr. Howard does not open his eyes or talk to me when I saw him this morning. Breathing deep and even. Winced when I touched his feet and said ow. Physical Exam Constitutional: + thin Respiratory: normal respiratory effort, lungs clear to auscultation Cardiovascular: RRR, no murmur, no edema Gastrointestinal (Abdomen): normal bowel sounds, soft, nontender, no hepatosplenomegaly Musculoskeletal: no cyanosis or clubbing, extremities motor strength 5/5 Skin: no rashes, warm and dry Neurologic: moves all extremities Psychiatric: Orientation: + not oriented x 3 and + uncooperative lethargic Results & Data Vital Signs (Past 12 Hours) Vital Signs Temp Pulse Pulse Resp BP Pulse Ox 07/03/19 11:18 36.6 C 90 18 136/70 95 07/03/19 07:38 100 H 07/03/19 06:57 36.6 C 103 H 18 142/78 H 94 PG Care Time/CCT Total # of Minutes Spent Total Time Spent with Patient: Total time spent is greater than 50% in coordination of care (as documented) at patient's floor/unit and/or counseling patient: Coding Level of Care Code 18892 Subseq Hosp Care Lvl 2 Diagnoses Sepsis A41.9 Sepsis acute organ dysfunction status: unspecified Sepsis type: sepsis due to unspecified organism AMS (altered mental status) R41.82 Altered mental status type: unspecified Acute UTI N39.0 Weakness R53.1 Hypertension I10 Dementia F03.90 Acute kidney injury superimposed on CKD N17.9; N18.9 DVT prophylaxis Z29.9 (1) Sepsis Sepsis acute organ dysfunction status: unspecified Sepsis type: sepsis due to unspecified organism Qualified Code(s): A41.9 - Sepsis, unspecified organism (2) AMS (altered mental status) Altered mental status type: unspecified Qualified Code(s): R41.82 - Altered mental status, unspecified
[2019-07-03] MEDS ORDERED: SODIUM CHLORIDE 0.9% 1000ML 1,000 ML IV SCH (15:30)
[2019-07-04 06:36] LABS: Basophils # (auto) 0.02 K/uL (0-0.2); Basophils % (auto) 0.2 %; Eosinophils # (auto) 0.07 K/uL (0-0.5); Eosinophils % (auto) 0.7 %; Hematocrit (blood only) 34.2 % (42-52); Hemoglobin 11.2 g/dL (14.0-18.0); Immature Granulocytes # (auto) 0.03 K/uL (0.00-0.02); Immature Granulocytes % (auto) 0.3 %; Lymphocytes # (auto) 0.65 K/uL (1.2-3.4); Lymphocytes % (auto) 6.4 %; Mean Corpuscular Hemoglobin 30.9 pg (25-34); Mean Corpuscular Hgb Conc 32.7 g/dL (32-36); Mean Corpuscular Volume 94.2 fL (80-100); Mean Platelet Volume 11.5 fL (7.4-10.4); Monocytes # (auto) 2.24 K/uL (0.11-0.59); Neutrophils # (auto) 7.19 K/uL (1.4-6.5); Neutrophils % (auto) 70.4 %; Platelet Count 159 K/uL (130-400); RDW Coefficient of Variation 14.9 % (11.5-14.5); RDW Standard Deviation 50.8 fL (36.4-46.3); Red Blood Count 3.63 M/uL (4.7-6.1)
[2019-07-04 07:10] LABS: Calcium 8.7 mg/dl (8.5-10.1); Creatinine Clr Calc Pharmacy 47.1 ml/min; Est GFR (African American) 59.9; Est GFR (Non-African American) 51.7; Potassium 3.4 mmol/L (3.5-5.1)
[2019-07-04 07:12] LABS: Albumin Globulin Ratio 0.5 (0.9-2); Bilirubin,Total 0.3 mg/dl (0.2-1); Globulin 4.1 gm/dl (2.5-4.0); Total Protein 6.1 gm/dl (6.4-8.2)
[2019-07-04] MEDS: CYANOCOBALAMIN 500 MCG TABLET (VITAMIN B-12) PO SCH (07:59)
[2019-07-04] MEDS: HEPARIN SOD 5,000 UNIT/0.5 ML VIAL SQ SCH (08:00)
[2019-07-04] MEDS: QUETIAPINE FUMARATE 25 MG TABLET PO SCH (08:00)
[2019-07-04] MEDS: LISINOPRIL/HCTZ 20/25MG 1 TAB PO SCH (08:00)
[2019-07-04] MEDS ORDERED: POTASSIUM CHLORIDE 20 MEQ TABCR PO STA (08:11)
[2019-07-04] MEDS ORDERED: DIVALPROEX DELAY RELEASE 500 MG TAB PO SCH (09:00)
[2019-07-04] MEDS: ERTAPENEM SODIUM 1,000 MG in SODIUM CHLORIDE 0.9% 50 ML IV SCH (09:45)
[2019-07-04] MEDS: NYSTATIN POWDER 15GM BTL EXT SCH (09:46)
--- NOTE | 2019-07-04 11:32 | Discharge Summary ---
Date of Service July 04, 2019 Admission HPI Per Admitting Provider The patient is a 74 years old male with past medical history of dementia and TBI who presents to the emergency room with a complaint of an episode of a fever that was first noticed last night per EMS. Patient is coming from [facility] [place] [place]. EMS reports that patient was more confused than usual and became violent. Patient temperature on arrival of EMS was 103.2 Fahrenheit this morning. Patient was given 650 mg of Tylenol. Patient is in his usual state of confusion due to dementia and his urine appears to be very clouded. EMS reports that patient also experienced multiple falls over past 24 hours. Patient is poor historian and most of the history is given by his sister who was asked to his bedside. Sister reports that patient would like to be DNR/DNI. Labs are reviewed: WBCs 14.98, hemoglobin 11.1, hematocrit 33.7, platelets 145. PT 10.9, INR 1.1, APTT 27.8, sodium 135, potassium 4.1, chloride 104, carbon dioxide 24 anion gap 7, BUN 41, creatinine 1.7, GFR 39.1, lactate 1.8-->2.1, BNP 11.24, total protein 6.5, Albumin 2.4, procalcitonin 7.28. TSH 0.43. Urine turbid 1+ protein, 3+ blood, 3+ leukocyte esterase, over 30 WBCs 5-10 RBCs, 4+ bacteria. Chest x-ray the bones of the soft tissue and hemidiaphragm are normal. The cardiomediastinal silhouette is normal. The lungs are clear the pulmonary vascularity is normal. Negative chest. Decision was made to admit patient to [facility] on telemetry for sepsis and urinary tract infection. Principal Diagnosis Sepsis, UTI Discharge Exam Constitutional WD/WN, vitals as above Respiratory normal respiratory effort, lungs clear to auscultation Cardiovascular RRR, no murmur, no edema Gastrointestinal (Abdomen) Inspection/Auscultation: abdomen normal to inspection and normal bowel sounds; abdomen not distended Percussion/Palpation: abdomen soft; abdomen nontender Musculoskeletal generalized weakness Skin no rashes, warm and dry Neurologic moves all extremities and awake Psychiatric Orientation: oriented to person Discharge Data Allergies Allergy/AdvReac Type Severity Reaction Status Date / Time No Known Allergies Allergy Mild Verified 07/01/19 15:08 Consultations 07/01/19 16:31 ED Decision to Admit Stat 07/02/19 15:55 Consult Palliative Care Routine Ordered Studies 07/01/19 22:33 US renal/blad retro comp Routine Hospital Course (1) Sepsis: Continue Ertapenem for E.Coli ESBL for a total of 7 days US renal normal given patient's inability to cooperate very well for the image Afebrile (2) AMS (altered mental status): Septic/metabolic encephalopathy Improving Secondary to UTI (3) Acute UTI: As management above US guided IV for Ertapenem administration at [facility] (4) Weakness: (5) Hypertension: Hold antihypertensives for now, going home on hospice and blood pressures have been normal (6) Dementia: Patient has severe Alzheimer dementia. Continue vitamin B12 500 MCG's p.o. every morning, Continue Seroquel 25 mg p.o. twice daily Change divalprox to TID while taking ertapenem - level this morning was 13. Check daily valproate levels. Return to normal dosing once ertapenem regimen is complete. Goal range is 30-40 Palliative care consult - patient will return to [facility] on hospice (7) Acute kidney injury superimposed on CKD: Resolved - creat 1.7 on admission Given IVF (8) DVT prophylaxis: heparin subq Total Time Total Time Spent Total Time Spent (In Minutes): greater than 30 minutes Discharge Plan Discharge Items Patient Disposition: Hospice - Medical Facility Reason For Visit: SEPSIS Discharge Diagnosis: Sepsis, UTI Activity: Resume your previous activity Non-emergency contact: Primary Care Provider Call non-emergency contact if: your symptoms worsen Follow-up/Referrals: Sher Braswell III, MD [Physician] - Diet: Regular Addtl Attending Provider Instructions: (1) Sepsis, UTO: Continue Ertapenem for E.Coli ESBL for four more days starting tomorrow for a total of seven days US renal normal given patient's inability to cooperate very well for the image Afebrile (2)Hypertension: Blood pressures have been well controlled, will hold lisinopril/hctz for now (3) Dementia: Patient has severe Alzheimer dementia and history of TBI. Continue vitamin B12 500 MCG's p.o. every morning, Continue Seroquel 25 mg p.o. twice daily Change divalproex 500 mg p.o. twice daily to three times daily while taking Ertapenem. Valproic acid level today only 13. Draw daily levels with goal of 30- 40. Valproic acid level slightly low - will check again tomorrow Palliative care consult - patient will return to [facility] on hospice (4) Acute kidney injury superimposed on CKD: Resolved - creat 1.7 on admission Pending Studies at Discharge: No Stand-Alone Forms: My [facility] [employer] Skilled Items Patient informed of condition?: No (severe dementia) DNR: Yes Discharge Level of Care: Skilled Communicable Disease: No Discharge Prognosis: Stable Lines: Peripheral IV Urinary Catheter: No Medications and DC Order Prescriptions: New ertapenem 1 gram recon soln 1 gm IV DAILY 4 Days RF: 0 Continued acetaminophen 325 mg capsule 650 mg PO Q6H PRN (Reason: Fever Or Pain) RF: 0 bisacodyl 10 mg suppository 10 mg OR DAILY PRN (Reason: NO BM 3 DAYS) RF: 0 lisinopril-hydrochlorothiazide 20-25 mg tablet 1 tab PO QAM RF: 0 mesalamine 1.2 gram tablet,delayed release (DR/EC) 2.4 gm PO BID RF: 0 quetiapine 25 mg tablet 25 mg PO BID RF: 0 cyanocobalamin (vitamin B-12) [Vitamin B-12] 500 mcg tablet 500 mcg PO QAM RF: 0 magnesium hydroxide [Milk of Magnesia] 400 mg/5 mL suspension 30 ml PO .COMPLEX PRN (Reason: NO BM AFTER 3 DAYS.) RF: 0 acetaminophen 650 mg tablet extended release 650 mg PO Q12H RF: 0 nystatin 100,000 unit/gram Powder 1 applic TOPICAL DAILY RF: 0 acitretin 25 mg capsule 25 mg PO QDL RF: 0 Changed divalproex [Depakote] 500 mg tablet,delayed release (DR/EC) 500 mg PO TID Qty: 0 RF: 0 Discharge Orders: Discharge Order (Routine); Ordered 07/04/19 Ordered By: Marli Bermudez/Other Patient Handouts: A1C Admission Data Admit Date/Time: 07/01/19 19:15 Attending Provider: Tylor Chi Admit Provider: Goyo Parikh Primary Care Provider: Nahomi Kinsey Other Providers: Tylor Chi ; Heather Luna ; [facility] Care Coding Level of Care Code D/C Day Management >30 mins Diagnoses Sepsis A41.9 Sepsis acute organ dysfunction status: unspecified Sepsis type: sepsis due to unspecified organism AMS (altered mental status) R41.82 Altered mental status type: unspecified Acute UTI N39.0 Weakness R53.1 Hypertension I10 Dementia F03.90 Acute kidney injury superimposed on CKD N17.9; N18.9 DVT prophylaxis Z29.9
== END 2019-07-04 14:47 | DRG 871 ==
LOC: ED 14:42 → SUATTDRO 19:15 → 2W 19:15